=== PATIENT | male | born 1965 | race Caucasian/White ===

== ENCOUNTER 2018-08-18 13:52 | Inpatient (IN) ==
--- NOTE | 2018-08-18 14:10 | Emergency Department Note ---
Addendum entered and electronically signed by Maraina Nieto 08/18/18 18:37: ROS was not acquired due to pt's altered mental status. Physical Exam: Head: Left pupil is 2mm larger than right. Left pupil not reactive to light, right pupil reacts normally. Mucous membranes moist. Atraumatic, normocephalic. Cardio: RRR no m/r/g Resp: CTAB A/P no wheezes, rales, or ronchi Abd: Non-tender, non-distended Extremities: non-swollen, cap refill <2s, contractures present in mariam UE Mental: Not alert or oriented. Only knows name, keeps repeating name over and over again when asked questions. Original Note: Disposition Clinical Impression: Altered mental status Qualifiers: Altered mental status type: unspecified Qualified Code(s): R41.82 - Altered mental status, unspecified Disposition: Admitted As Inpatient Condition: Fair Referrals: Escobar Edmondson MD [Primary Care Provider] - Forms: ED Satisfaction Letter Time of Disposition: 18:27 General Adult HPI - General Stated complaint: sick? Time Seen by Provider: 08/18/18 13:58 Source: EMS Mode of arrival: EMS Limitations: altered mental status Nursing Notes Reviewed: Yes Vital Signs Reviewed: Yes - History of Present Illness HPI Narrative: Pt presents via EMS who state that the patient was at dialysis and about an hour into dialysis he started vomiting. This is what EMS was told from dialysis clinic. Pt was mostly unresponsive for EMS, had stable vitals, did not vomit, and did not require any oxygen. In the room, pt will open eyes to voice, cannot follow commands, and repeats "Thee" when asked questions. Pt has only received lab work at this facility, there is no other medical history in this system. Pt was picked up at [facility] [address] [place] [address], but there is no answer when calling this facility. - Related Data Home Medications Medication Instructions Recorded Confirmed Aspirin [Lo-Dose Aspirin EC] 81 mg PO DAILY 08/18/18 08/18/18 Atorvastatin Calcium [Lipitor] 80 mg PO HS 08/18/18 08/18/18 B Complex W-C No.20/Folic Acid 1 mg PO DAILY 08/18/18 08/18/18 [Virt-Caps Softgel] Baclofen [Lioresal] 5 mg PO BID PRN 08/18/18 08/18/18 Bisacodyl [Dulcolax] 10 mg RC DAILY PRN 08/18/18 08/18/18 Cholecalciferol (Vitamin D3) 50,000 unit PO QMONTH 08/18/18 08/18/18 [Vitamin D] Cyclopentolate HCl [Cyclogyl] 1 drop BOTH EYES BID 08/18/18 08/18/18 Divalproex Sodium [Depakote] 125 mg PO 0800 08/18/18 08/18/18 Erythromycin OPTH Oint 1 appl RIGHT EYE HS 08/18/18 08/18/18 Esomeprazole Magnesium [Nexium] 40 mg PO QAM 08/18/18 08/18/18 Furosemide [Lasix] 80 mg PO BID 08/18/18 08/18/18 Gabapentin [Neurontin] 100 mg PO TUTHSA 08/18/18 08/18/18 Gabapentin [Neurontin] 300 mg PO 0800 08/18/18 08/18/18 Gabapentin [Neurontin] 300 mg PO SUMOWEFR 08/18/18 08/18/18 HYDROcodone/Acet 5/325 mg [[place] 1 tab PO Q4H PRN 08/18/18 08/18/18 5-325 mg] Insulin Glargine [Lantus] 27 unit SQ HS 08/18/18 08/18/18 Insulin Regular, Human [Novolin R] 0 unit SQ 0800,1100,1600,2000 08/18/18 08/18/18 Isosorbide MONOnitrate (24 HR) 30 mg PO DAILY 08/18/18 08/18/18 [Imdur] Meclizine HCl [Verticalm] 25 mg PO Q12H PRN 08/18/18 08/18/18 Metoprolol [Lopressor] 25 mg PO BID 08/18/18 08/18/18 Nitroglycerin [Nitrostat] 0.4 mg SL Q5M PRN 08/18/18 08/18/18 Ondansetron HCl [Zofran] 4 mg PO Q6H PRN 08/18/18 08/18/18 Prednisolone Acetate/Pf 1 drop BOTH EYES BID 08/18/18 08/18/18 [Prednisolone Acet 1% Eye Drop] Tamsulosin HCl [Flomax] 0.4 mg PO DAILY 08/18/18 08/18/18 Tramadol HCl [Ultram] 50 mg PO BID PRN 08/18/18 08/18/18 Venlafaxine HCl [Venlafaxine HCl 75 mg PO DAILY 08/18/18 08/18/18 ER] amLODIPine [Norvasc] 5 mg PO BID 08/18/18 08/18/18 hydrALAZINE [HydrALAZINE] 25 mg PO Q8HR 08/18/18 08/18/18 Allergies Allergy/AdvReac Type Severity Reaction Status Date / Time vancomycin Allergy Rash Verified 08/18/18 16:15 Course Course Narrative: Pt's sister arrived at bedside and states that patient has had a declining mental status for the last 3 days, sister also noted that patient was complaining of a severe headache last night at 7:30 PM. She also relates that patient has a history of CHF, 2 CVAs, diabetes, diabetic retinopathy, and was admitted to the hospital last month for pneumonia. Patient apparently only has use of his right arm, has had detached retinas, and is normally able to converse easily at baseline. Patient will need to be admitted for workup of altered mental status. Vital Signs Temperature 98.4 F 08/18/18 14:11 Pulse Rate 60 08/18/18 14:11 Respiratory Rate 16 08/18/18 14:11 Blood Pressure 166/78 08/18/18 14:11 O2 Sat by Pulse Oximetry 93 08/18/18 14:11 Temperature 98.4 F 08/18/18 14:11 Pulse Rate 60 08/18/18 14:11 Respiratory Rate 16 08/18/18 14:11 Blood Pressure 166/78 08/18/18 14:11 O2 Sat by Pulse Oximetry 100 08/18/18 14:24 Oxygen Delivery Oxygen Delivery Room Air Medical Decision Making - MDM Narrative Medical decision making narrative: Patient had an extensive workup in the emergency department including head CT, chest x-ray, EKG, lab work to include CBC, CMP, ammonia level, Depakote level, as well as several other labs which failed to show any significant abnormalities. Patient's sister came in during his treatment in the emergency department and stated that he has had a worsening mental status over the last 3 days, and at his baseline as he is normally able to communicate. Paperwork sent from [facility] states the patient is normally a and O 3, patient is still unable to verbalize if anything is wrong. Patient will be admitted for workup of altered mental status. Dr. Arce, hospitalist, accepts. Patient's vital signs remained stable while in the department. - Medical Records Medical records reviewed: Yes I reviewed the patient's medical records. - Lab Data Lab results reviewed: Yes I reviewed the patient's lab results. Result diagrams: 08/18/18 14:19 08/18/18 14:19 Lab Results 08/18/18 08/18/18 08/18/18 Range/Units 14:19 14:19 14:19 WBC 5.1 (4.3-11.1) K/mcL RBC 2.29 L (4.19-5.50) M/mcL Hgb 7.3 L (12.9-16.9) g/dL Hct 22.3 L (37.5-50.1) % MCV 97.4 (83.0-100.0) fL MCH 31.9 (28.0-33.3) pg MCHC 32.7 (31.6-35.5) g/dL RDW 13.2 (11.5-14.5) % Plt Count 156 (140-400) K/mcL MPV 8.9 L (9.4-12.4) fL Immature Gran % 0.2 (0-4) % Seg Neutrophils % 75.7 % Lymphocytes % 8.9 % Monocytes % 10.3 % Eosinophils % 4.3 % Basophils % 0.6 % Neutrophils # 3.8 (1.6-8.9) K/mcL Lymphocytes # 0.5 L (0.6-4.6) K/mcL Monocytes # 0.5 (0.0-1.3) K/mcL Eosinophils # 0.2 (0.0-0.6) K/mcL Basophils # 0.0 (0.0-0.2) K/mcL PT 12.3 H (9.4-12.1) Seconds INR 1.1 APTT 36.0 (26.0-36.0) Seconds Sodium 141 (136-145) mEq/L Potassium 4.0 (3.5-5.1) mEq/L Chloride 102 (98-107) mEq/L Carbon Dioxide 28 (23-29) mEq/L BUN 56 H (6-20) mg/dL Creatinine 5.64 H (0.70-1.30) mg/dL Est GFR ( Amer) 13 L (> 60) Est GFR (Non-Af Amer) 11 L (> 60) BUN/Creatinine Ratio 10 (6-26) Glucose 100 (70-105) mg/dL Calculated Osmolality 308 H (280-300) Lactic Acid (0.5-2.2) mmol/L Calcium 8.1 L (8.6-10.3) mg/dL Total Bilirubin 0.4 (0.3-1.0) mg/dL Direct Bilirubin 0.1 (0.0-0.2) mg/dL Indirect Bilirubin 0.3 (0.0-1.2) mg/dL AST 11 L (13-39) Units/L ALT 14 (7-52) Units/L Alkaline Phosphatase 71 (34-104) Units/L Ammonia (16-53) mcmol/L Troponin I < 0.03 (< 0.04) ng/mL Serum Total Protein 6.3 L (6.4-8.9) g/dL Albumin 3.6 (3.5-5.7) g/dL Globulin 2.7 (2.4-3.5) g/dL Albumin/Globulin Ratio 1.3 (1.1-2.2) Lipase 29 (11-82) Units/L Valproic Acid 10 L (50-100) mcg/mL 18 08/18/18 Range/Units 17:12 17:12 WBC (4.3-11.1) K/mcL RBC (4.19-5.50) M/mcL Hgb (12.9-16.9) g/dL Hct (37.5-50.1) % MCV (83.0-100.0) fL MCH (28.0-33.3) pg MCHC (31.6-35.5) g/dL RDW (11.5-14.5) % Plt Count (140-400) K/mcL MPV (9.4-12.4) fL Immature Gran % (0-4) % Seg Neutrophils % % Lymphocytes % % Monocytes % % Eosinophils % % Basophils % % Neutrophils # (1.6-8.9) K/mcL Lymphocytes # (0.6-4.6) K/mcL Monocytes # (0.0-1.3) K/mcL Eosinophils # (0.0-0.6) K/mcL Basophils # (0.0-0.2) K/mcL PT (9.4-12.1) Seconds INR APTT (26.0-36.0) Seconds Sodium (136-145) mEq/L Potassium (3.5-5.1) mEq/L Chloride (98-107) mEq/L Carbon Dioxide (23-29) mEq/L BUN (6-20) mg/dL Creatinine (0.70-1.30) mg/dL Est GFR ( Amer) (> 60) Est GFR (Non-Af Amer) (> 60) BUN/Creatinine Ratio (6-26) Glucose (70-105) mg/dL Calculated Osmolality (280-300) Lactic Acid 0.6 (0.5-2.2) mmol/L Calcium (8.6-10.3) mg/dL Total Bilirubin (0.3-1.0) mg/dL Direct Bilirubin (0.0-0.2) mg/dL Indirect Bilirubin (0.0-1.2) mg/dL AST (13-39) Units/L ALT (7-52) Units/L Alkaline Phosphatase (34-104) Units/L Ammonia 29 (16-53) mcmol/L Troponin I (< 0.04) ng/mL Serum Total Protein (6.4-8.9) g/dL Albumin (3.5-5.7) g/dL Globulin (2.4-3.5) g/dL Albumin/Globulin Ratio (1.1-2.2) Lipase (11-82) Units/L Valproic Acid (50-100) mcg/mL - Radiology Data Radiology results reviewed: Yes I reviewed the patient's radiology results. Head CT 08/18/18 14:03 IMPRESSION: No acute intracranial abnormality with chronic findings as described. D/ / Ari Varner MD / Ari Varner MD Interpreting Provider: Ari Varner MD Chest X-Ray 08/18/18 15:58 IMPRESSION: Cardiomegaly. Findings of mild congestive heart failure versus physiologic redistribution and atelectatic appearance. D/ / Carlos Galan / Carlos Galan Interpreting Provider: Carlos Galan - EKG Data EKG #1 EKG attestation: Yes I reviewed and interpreted this EKG. EKG results narrative: HR 61, rhythm sinus, axis left -2. OR 166, QRS 113, QT 463. Isolated t wave depression in V4-V5 1mm
[2018-08-18] MEDS ORDERED: Ondansetron 4 MG/2 ML VIAL IVP ONE (14:12)
[2018-08-18 14:31] LABS: Basophils % 0.6 %; Eosinophils # 0.2 K/mcL (0.0-0.6); Eosinophils % 4.3 %; Hematocrit 22.3 % (37.5-50.1); Hemoglobin 7.3 g/dL (12.9-16.9); Immature Granulocytes % 0.2 % (0-4); Lymphocytes # 0.5 K/mcL (0.6-4.6); Lymphocytes % 8.9 %; Mean Corpuscular HGB Conc 32.7 g/dL (31.6-35.5); Mean Corpuscular Hemoglobin 31.9 pg (28.0-33.3); Mean Corpuscular Volume 97.4 fL (83.0-100.0); Mean Platelet Volume 8.9 fL (9.4-12.4); Monocytes # 0.5 K/mcL (0.0-1.3); Monocytes % 10.3 %; Neutrophils # 3.8 K/mcL (1.6-8.9); Platelet Count 156 K/mcL (140-400); Red Blood Count 2.29 M/mcL (4.19-5.50); Red Cell Distribution Width 13.2 % (11.5-14.5); Segmented Neutrophils % 75.7 %
[2018-08-18 14:50] LABS: Alanine Aminotransferase 14 Units/L (7-52); Albumin 3.6 g/dL (3.5-5.7); Alkaline Phosphatase 71 Units/L (34-104); Aspartate Amino Transferase 11 Units/L (13-39); BUN/Creatinine Ratio 10 (6-26); Bilirubin,Total 0.4 mg/dL (0.3-1.0); Blood Urea Nitrogen 56 mg/dL (6-20); Calcium 8.1 mg/dL (8.6-10.3); Carbon Dioxide 28 mEq/L (23-29); Chloride 102 mEq/L (98-107); Glucose 100 mg/dL (70-105); Osmolality,Calculated 308 (280-300); Sodium 141 mEq/L (136-145); Total Protein 6.3 g/dL (6.4-8.9); eGFR For Non-African Americans 11 (> 60)
[2018-08-18 14:51] LABS: Albumin/Globulin Ratio 1.3 (1.1-2.2); Globulin 2.7 g/dL (2.4-3.5); Lipase 29 Units/L (11-82)
--- NOTE | 2018-08-18 16:11 | Emergency Department Note ---
Disposition Clinical Impression: Altered mental status Disposition: Admitted As Inpatient Condition: Fair General Adult HPI - General Chief complaint: ED Nausea/Vomiting/Diarrhea Stated complaint: sick? Time Seen by Provider: 08/18/18 13:58 Source: EMS Mode of arrival: EMS Limitations: altered mental status - History of Present Illness Pain Scale: 0 - Related Data Home Medications Medication Instructions Recorded Confirmed Aspirin [Lo-Dose Aspirin EC] 81 mg PO DAILY 08/18/18 08/18/18 Atorvastatin Calcium [Lipitor] 80 mg PO HS 08/18/18 08/18/18 B Complex W-C No.20/Folic Acid 1 mg PO DAILY 08/18/18 08/18/18 [Virt-Caps Softgel] Baclofen [Lioresal] 5 mg PO BID PRN 08/18/18 08/18/18 Bisacodyl [Dulcolax] 10 mg RC DAILY PRN 08/18/18 08/18/18 Cholecalciferol (Vitamin D3) 50,000 unit PO QMONTH 08/18/18 08/18/18 [Vitamin D] Cyclopentolate HCl [Cyclogyl] 1 drop BOTH EYES BID 08/18/18 08/18/18 Divalproex Sodium [Depakote] 125 mg PO 0800 08/18/18 08/18/18 Erythromycin OPTH Oint 1 appl RIGHT EYE HS 08/18/18 08/18/18 Esomeprazole Magnesium [Nexium] 40 mg PO QAM 08/18/18 08/18/18 Furosemide [Lasix] 80 mg PO BID 08/18/18 08/18/18 Gabapentin [Neurontin] 100 mg PO TUTHSA 08/18/18 08/18/18 Gabapentin [Neurontin] 300 mg PO 0800 08/18/18 08/18/18 Gabapentin [Neurontin] 300 mg PO SUMOWEFR 08/18/18 08/18/18 HYDROcodone/Acet 5/325 mg [[place] 1 tab PO Q4H PRN 08/18/18 08/18/18 5-325 mg] Insulin Glargine [Lantus] 27 unit SQ HS 08/18/18 08/18/18 Insulin Regular, Human [Novolin R] 0 unit SQ 0800,1100,1600,2000 08/18/18 08/18/18 Isosorbide MONOnitrate (24 HR) 30 mg PO DAILY 08/18/18 08/18/18 [Imdur] Meclizine HCl [Verticalm] 25 mg PO Q12H PRN 08/18/18 08/18/18 Metoprolol [Lopressor] 25 mg PO BID 08/18/18 08/18/18 Nitroglycerin [Nitrostat] 0.4 mg SL Q5M PRN 08/18/18 08/18/18 Ondansetron HCl [Zofran] 4 mg PO Q6H PRN 08/18/18 08/18/18 Prednisolone Acetate/Pf 1 drop BOTH EYES BID 08/18/18 08/18/18 [Prednisolone Acet 1% Eye Drop] Tamsulosin HCl [Flomax] 0.4 mg PO DAILY 08/18/18 08/18/18 Tramadol HCl [Ultram] 50 mg PO BID PRN 08/18/18 08/18/18 Venlafaxine HCl [Venlafaxine HCl 75 mg PO DAILY 08/18/18 08/18/18 ER] amLODIPine [Norvasc] 5 mg PO BID 08/18/18 08/18/18 hydrALAZINE [HydrALAZINE] 25 mg PO Q8HR 08/18/18 08/18/18 Allergies Allergy/AdvReac Type Severity Reaction Status Date / Time vancomycin Allergy Rash Verified 08/18/18 16:15 Past Medical History - Past Medical History Medical history: Reports: dialysis, renal disease Psychiatric history: Reports: no psych history - Social History Smoking Status: Unknown if ever smoked Smokeless Tobacco Status: No Alcohol use: Reports: unknown Drug use: Reports: unknown Physical Exam - General Limitations: altered mental status General appearance: alert, in distress, obese Course Vital Signs Temperature 98.4 F 08/18/18 14:11 Pulse Rate 60 08/18/18 14:11 Respiratory Rate 16 08/18/18 14:11 Blood Pressure 166/78 08/18/18 14:11 O2 Sat by Pulse Oximetry 93 08/18/18 14:11 Temperature 98.4 F 08/18/18 14:11 Pulse Rate 60 08/18/18 14:11 Respiratory Rate 16 08/18/18 14:11 Blood Pressure 166/78 08/18/18 14:11 O2 Sat by Pulse Oximetry 100 08/18/18 14:24 Oxygen Delivery Oxygen Delivery Room Air Medical Decision Making - Lab Data Result diagrams: 08/18/18 14:19 08/18/18 14:19 Lab Results 08/18/18 08/18/18 08/18/18 Range/Units 14:19 14:19 14:19 WBC 5.1 (4.3-11.1) K/mcL RBC 2.29 L (4.19-5.50) M/mcL Hgb 7.3 L (12.9-16.9) g/dL Hct 22.3 L (37.5-50.1) % MCV 97.4 (83.0-100.0) fL MCH 31.9 (28.0-33.3) pg MCHC 32.7 (31.6-35.5) g/dL RDW 13.2 (11.5-14.5) % Plt Count 156 (140-400) K/mcL MPV 8.9 L (9.4-12.4) fL Immature Gran % 0.2 (0-4) % Seg Neutrophils % 75.7 % Lymphocytes % 8.9 % Monocytes % 10.3 % Eosinophils % 4.3 % Basophils % 0.6 % Neutrophils # 3.8 (1.6-8.9) K/mcL Lymphocytes # 0.5 L (0.6-4.6) K/mcL Monocytes # 0.5 (0.0-1.3) K/mcL Eosinophils # 0.2 (0.0-0.6) K/mcL Basophils # 0.0 (0.0-0.2) K/mcL PT 12.3 H (9.4-12.1) Seconds INR 1.1 APTT 36.0 (26.0-36.0) Seconds Sodium 141 (136-145) mEq/L Potassium 4.0 (3.5-5.1) mEq/L Chloride 102 (98-107) mEq/L Carbon Dioxide 28 (23-29) mEq/L BUN 56 H (6-20) mg/dL Creatinine 5.64 H (0.70-1.30) mg/dL Est GFR ( Amer) 13 L (> 60) Est GFR (Non-Af Amer) 11 L (> 60) BUN/Creatinine Ratio 10 (6-26) Glucose 100 (70-105) mg/dL Calculated Osmolality 308 H (280-300) Lactic Acid (0.5-2.2) mmol/L Calcium 8.1 L (8.6-10.3) mg/dL Total Bilirubin 0.4 (0.3-1.0) mg/dL Direct Bilirubin 0.1 (0.0-0.2) mg/dL Indirect Bilirubin 0.3 (0.0-1.2) mg/dL AST 11 L (13-39) Units/L ALT 14 (7-52) Units/L Alkaline Phosphatase 71 (34-104) Units/L Ammonia (16-53) mcmol/L Troponin I < 0.03 (< 0.04) ng/mL Serum Total Protein 6.3 L (6.4-8.9) g/dL Albumin 3.6 (3.5-5.7) g/dL Globulin 2.7 (2.4-3.5) g/dL Albumin/Globulin Ratio 1.3 (1.1-2.2) Lipase 29 (11-82) Units/L Valproic Acid 10 L (50-100) mcg/mL 08/18/18 08/18/18 Range/Units 17:12 17:12 WBC (4.3-11.1) K/mcL RBC (4.19-5.50) M/mcL Hgb (12.9-16.9) g/dL Hct (37.5-50.1) % MCV (83.0-100.0) fL MCH (28.0-33.3) pg MCHC (31.6-35.5) g/dL RDW (11.5-14.5) % Plt Count (140-400) K/mcL MPV (9.4-12.4) fL Immature Gran % (0-4) % Seg Neutrophils % % Lymphocytes % % Monocytes % % Eosinophils % % Basophils % % Neutrophils # (1.6-8.9) K/mcL Lymphocytes # (0.6-4.6) K/mcL Monocytes # (0.0-1.3) K/mcL Eosinophils # (0.0-0.6) K/mcL Basophils # (0.0-0.2) K/mcL PT (9.4-12.1) Seconds INR APTT (26.0-36.0) Seconds Sodium (136-145) mEq/L Potassium (3.5-5.1) mEq/L Chloride (98-107) mEq/L Carbon Dioxide (23-29) mEq/L BUN (6-20) mg/dL Creatinine (0.70-1.30) mg/dL Est GFR ( Amer) (> 60) Est GFR (Non-Af Amer) (> 60) BUN/Creatinine Ratio (6-26) Glucose (70-105) mg/dL Calculated Osmolality (280-300) Lactic Acid 0.6 (0.5-2.2) mmol/L Calcium (8.6-10.3) mg/dL Total Bilirubin (0.3-1.0) mg/dL Direct Bilirubin (0.0-0.2) mg/dL Indirect Bilirubin (0.0-1.2) mg/dL AST (13-39) Units/L ALT (7-52) Units/L Alkaline Phosphatase (34-104) Units/L Ammonia 29 (16-53) mcmol/L Troponin I (< 0.04) ng/mL Serum Total Protein (6.4-8.9) g/dL Albumin (3.5-5.7) g/dL Globulin (2.4-3.5) g/dL Albumin/Globulin Ratio (1.1-2.2) Lipase (11-82) Units/L Valproic Acid (50-100) mcg/mL Attestation Statement - Attestation Attestation: I examined this patient and my medical decision-making was reviewed with the Resident Physician. I agree with the documented findings, disposition and treatment plan as described except to the extent set forth below. Patient presents to the emergency Department with altered mental status and vomiting. Patient had several episodes of vomiting while at dialysis today. Patient was then confused which is new for him. Patient with eyes open. Follows basic commands. Answers every question "yes" for me. Abdomen was soft. Lungs were clear. Legs contracted. Pupils unequal. The patient appears to have had a prior surgery on the left eye. Plan. The patient is blind. He has had a prior stroke with left-sided hemiparesis. He is on dialysis. Labs pending. Unclear the cause of his altered mental status at this time. The patient's workup is complete. Still unclear the cause of his altered mental status. Sister is now at bedside and states is been this way for 3 days. He is admitted to medicine. Head CT 08/18/18 14:03 IMPRESSION: No acute intracranial abnormality with chronic findings as described. D/ / Ari Varner MD / Ari Varner MD Interpreting Provider: Ari Varner MD Chest X-Ray 08/18/18 15:58 IMPRESSION: Cardiomegaly. Findings of mild congestive heart failure versus physiologic redistribution and atelectatic appearance. D/ / Carlos Galan / Carlos Galan Interpreting Provider: Carlos Galan
[2018-08-18 17:01] LABS: INR 1.1; Prothrombin Time 12.3 Seconds (9.4-12.1)
[2018-08-18 17:04] LABS: Bilirubin,Direct 0.1 mg/dL (0.0-0.2); Bilirubin,Indirect 0.3 mg/dL (0.0-1.2); Troponin I < 0.03 ng/mL (< 0.04); Valproate 10 mcg/mL (50-100)
[2018-08-18] MEDS ORDERED: Naloxone 0.4 MG/ML INJ IVP PRN (18:33)
[2018-08-18] MEDS ORDERED: D5% in Water 1,000 ML IVC PRN (22:11)
[2018-08-18] MEDS ORDERED: Dextrose Gel 15 GM/37.5 ML TUBE PO PRN ×2 (22:11)
[2018-08-18] MEDS ORDERED: *HR* Dextrose 50 % in Water (Syg) 50 ML SYRINGE IVP PRN (22:11)
[2018-08-18 22:27] LABS: Hematocrit 22.6 % (37.5-50.1); Hemoglobin 7.4 g/dL (12.9-16.9); Mean Corpuscular HGB Conc 32.7 g/dL (31.6-35.5); Mean Corpuscular Hemoglobin 32.3 pg (28.0-33.3); Mean Corpuscular Volume 98.7 fL (83.0-100.0); Mean Platelet Volume 9.5 fL (9.4-12.4); Platelet Count 173 K/mcL (140-400); Red Blood Count 2.29 M/mcL (4.19-5.50); Red Cell Distribution Width 13.2 % (11.5-14.5)
--- NOTE | 2018-08-18 22:45 | Internal Med History&Physical ---
Date of Encounter: 08/18/18 Time of Encounter: 21:30 Internal Medicine - H&P: HPI Chief complaint: Acute encephalopathy Admitted From: Emergency Dept Plans for Post Hospital Care: Home History of present illness: Mr. Patterson is a 53 year old male Patient presented to the ER after vomiting and having decreased responsiveness at dialysis the morning of admission. Patient is a poor historian and is unable to answer questions, only responding "yes" to all questions. Patient recently moved to this area about 2 weeks ago to be closer to his sister. He has lived in a long term for 2 years, ever since a stroke caused him lasting residual left sided weakness. He has a history of ESRD, diabetes, diabetic retinopathy, and blindness. I spoke with the patient's sister (DPOA) over the phone to help clarify the history. She indicated that he has lived at a different long term but moved here so that she could be closer to him. He has been "declining the last 3 days." She states that she had spoken with the patient the evening before admission and he was at baseline, able to converse normally. He had stated at th at time that he had a bad headache and abdominal pain, and he wanted to go to bed. The following morning he was at dialysis, had gone about 1 hour, when he vomited, and was less responsive. EMS was called and he was transported to the ER for further management. In the ER patient's CBC was 7.3, BUN was 56 and creatinine was 5.64. Head CT showed no acute changes, but did have chronic changes. Chest x-ray showed CHF vs. physiologic redistribution. EKG was normal sinus rhythm. He was admitted to the floor for further management. Upon my assessment, I was initially concerned because the patient has had an acute change in mental status, that has not improved, and still no known cause. After speaking with the patient's sister I decided to pursue further stroke workup. I could not get a good history from the patient, and ROS was not able to be completed. I ordered stat MRI/MRA of brain, as well as abdominal CT. I also ordered stat CBC and type and screen. Patient's DPOA agreed with plan. Past Med Surg Social Fam HX - Past Medical History Medical history: CHF, COPD, coronary artery disease, CVA, diabetes, dialysis, GERD, hypertension, myocardial infarction, renal disease Additional medical history: BPH, dysphagia Psychiatric history: depression - Past Surgical History Additional surgical history: left fifth toe amputation - Social History Smoking Status: Unknown if ever smoked Smokeless Tobacco Status: No Alcohol use: unknown Drug use: unknown Internal Medicine - H&P: Meds Aspirin [Lo-Dose Aspirin EC] 81 mg PO DAILY 08/18/18 [History] Atorvastatin Calcium [Lipitor] 80 mg PO HS 08/18/18 [History] B Complex W-C No.20/Folic Acid [Virt-Caps Softgel] 1 mg PO DAILY 08/18/18 [History] Baclofen [Lioresal] 5 mg PO BID PRN 08/18/18 [History] Bisacodyl [Dulcolax] 10 mg RC DAILY PRN 08/18/18 [History] Cholecalciferol (Vitamin D3) [Vitamin D] 50,000 unit PO QMONTH 08/18/18 [Hi story] Cyclopentolate HCl [Cyclogyl] 1 drop BOTH EYES BID 08/18/18 [History] Divalproex Sodium [Depakote] 125 mg PO 0800 08/18/18 [History] Erythromycin OPTH Oint 1 appl RIGHT EYE HS 08/18/18 [History] Esomeprazole Magnesium [Nexium] 40 mg PO QAM 08/18/18 [History] Furosemide [Lasix] 80 mg PO BID 08/18/18 [History] Gabapentin [Neurontin] 100 mg PO TUTHSA 08/18/18 [History] Gabapentin [Neurontin] 300 mg PO 0800 08/18/18 [History] Gabapentin [Neurontin] 300 mg PO SUMOWEFR 08/18/18 [History] HYDROcodone/Acet 5/325 mg [[place] 5-325 mg] 1 tab PO Q4H PRN 08/18/18 [History] Insulin Glargine [Lantus] 27 unit SQ HS 08/18/18 [History] Insulin Regular, Human [Novolin R] 0 unit SQ 0800,1100,1600,2000 08/18/18 [History] Isosorbide MONOnitrate (24 HR) [Imdur] 30 mg PO DAILY 08/18/18 [History] Meclizine HCl [Verticalm] 25 mg PO Q12H PRN 08/18/18 [History] Metoprolol [Lopressor] 25 mg PO BID 08/18/18 [History] Nitroglycerin [Nitrostat] 0.4 mg SL Q5M PRN 08/18/18 [History] Ondansetron HCl [Zofran] 4 mg PO Q6H PRN 08/18/18 [History] Prednisolone Acetate/Pf [Prednisolone Acet 1% Eye Drop] 1 drop BOTH EYES BID 08/18/18 [History] Tamsulosin HCl [Flomax] 0.4 mg PO DAILY 08/18/18 [History] Tramadol HCl [Ultram] 50 mg PO BID PRN 08/18/18 [History] Venlafaxine HCl [Venlafaxine HCl ER] 75 mg PO DAILY 08/18/18 [History] amLODIPine [Norvasc] 5 mg PO BID 08/18/18 [History] hydrALAZINE [HydrALAZINE] 25 mg PO Q8HR 08/18/18 [History] Allergy/AdvReac Type Severity Reaction Status Date / Time vancomycin Allergy Rash Verified 08/18/18 16:15 ROS unobtainable: due to mental status All Systems PM: A 10-system review of systems was performed and is negative for pertinent findings except as documented above in the HPI. - Constitutional Vitals: Temp Pulse Resp BP Pulse Ox 98.0 F 68 18 190/90 93 08/18/18 19:15 08/18/18 19:15 08/18/18 19:15 08/18/18 19:15 08/18/18 20:37 General appearance: Present: A&O X 0. Absent: cooperative, answers questions appropriately Exam: As above. - Eye Pupils: Present: fixed Additional comments: Blind - Respiratory Respiratory exam: Present: CTAB. Absent: rales, respiratory distress, wheezes - Cardiovascular Cardiovascular exam: Present: RRR. Absent: diastolic murmur, systolic murmur - GI/Abdominal GI/Abdominal exam: Present: tenderness Additional comments: Unclear if tender abdomen, patient does not respond to palpation with signs of pain - Extremities Exam Additional comments: contracted hands, cant move left side at baseline. - Neurological Exam Neurological exam: Present: altered Additional comments: only answers yes to questions, even with non- yes or no questions. Patient did say, "Lucille Junior when I introduced myself however." - Skin Skin exam: Present: dry, normal color, warm Internal Med - H&P Results - Labs CBC & Chem 7: 08/18/18 22:12 08/19/18 06:34 Labs: Short CBC 08/18/18 08/18/18 Range/Units 14:19 22:12 WBC 5.1 5.3 (4.3-11.1) K/mcL Hgb 7.3 L 7.4 L (12.9-16.9) g/dL Hct 22.3 L 22.6 L (37.5-50.1) % Plt Count 156 173 (140-400) K/mcL Neutrophils # 3.8 (1.6-8.9) K/mcL BMP 08/18/18 14:19 Sodium 141 Potassium 4.0 Chloride 102 Carbon Dioxide 28 BUN 56 H Creatinine 5.64 H Glucose 100 Calcium 8.1 L Cardiac Enzymes 08/18/18 Range/Units 14:19 Troponin I < 0.03 (< 0.04) ng/mL Liver Function 08/18/18 Range/Units 14:19 Total Bilirubin 0.4 (0.3-1.0) mg/dL Direct Bilirubin 0.1 (0.0-0.2) mg/dL AST 11 L (13-39) Units/L ALT 14 (7-52) Units/L Alkaline Phosphatase 71 (34-104) Units/L Albumin 3.6 (3.5-5.7) g/dL - Impressions ITS Impressions Head CT 08/18/18 14:03 IMPRESSION: No acute intracranial abnormality with chronic findings as described. D/ / Ari Varner MD / Ari Varner MD Interpreting Provider: Ari Varner MD Chest X-Ray 08/18/18 15:58 IMPRESSION: Cardiomegaly. Findings of mild congestive heart failure versus physiologic redistribution and atelectatic appearance. D/ / Carlos Galan / Carlos Galan Interpreting Provider: Carlos Galan - Assessment and plan (1) Acute encephalopathy Current Visit: Yes Status: Acute Assessment and plan: Concerned for stroke, but patient has ESRD. Stat MRI/MRA brain head and neck ordered. Results positive for small acute infarction involving the right temporal lobe periventricular white matter. There was severe chronic microangiopathic ischemic changes of cerebral white matter as well as absent flow related signal within the distal right vertebral artery. 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 Super imposed acquired occlusion or severe stenosis were also considered. After obtaining these results, I again spoke with the patient's DPOA. She stated that if necessary she would be ok with transfer to [facility] for further management. I then called [facility] and spoke with Dr. Brian of neurology. She stated that as it is a small infarction, we could pursue medical management, and transfer may not be necessary. She recommended further work up with Echo and carotid dopplers. Patient had already been on aspirin and atorvastatin. She also recommended neurology and therapy consultation. Patient's DPOA agreed with this plan. Echo cardiogram in AM Carotid doppler exam Neurology consult PT/OT consultation Speech and swallow evaluation (2) Acute cerebral infarction Current Visit: Yes Status: Acute Assessment and plan: As above (3) Anemia Current Visit: Yes Status: Acute Assessment and plan: Unclear what patient's baseline is. Stat CBC was unchanged from previous. Likely related to ESRD, but no history about this provided. Type and screen Occult blood with next bowel movement. Transfuse if less than 7.0 Qualifiers: Anemia type: due to chronic kidney disease Chronic kidney disease stage: on chronic dialysis Qualified Code(s): N18.6 - End stage renal disease; D63.1 - Anemia in chronic kidney disease; Z99.2 - Dependence on renal dialysis (4) Abdominal pain Current Visit: Yes Status: Acute Assessment and plan: Unclear etiology. Stat CT showed possible cystitis. No bleed noted. CT was non- contrast due to kidney function. Obtain UA Start antibiotics if positive for infection. Qualifiers: Abdominal location: unspecified location Qualified Code(s): R10.9 - Unspecified abdominal pain (5) ESRD (end stage renal disease) on dialysis Current Visit: Yes Status: Acute Assessment and plan: Patient unable to complete dialysis yesterday. Scheduled for Monday and Monday. Nephrology consult in AM. (6) Diabetes Current Visit: Yes Status: Acute Assessment and plan: Low dose sliding scale Monitor sugars Q6H while NPO. 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 Will continue to monitor. Qualifiers: Hypertension type: unspecified Qualified Code(s): I10 - Essential (primary) hypertension (8) History of CVA (cerebrovascular accident) Current Visit: Yes Status: Acute Assessment and plan: Patient has had 2 previous strokes, with chronic left sided weakness from second stroke. He is a long term patient for this reason. Management of 3rd stroke as above. (9) Goals of care, counseling/discussion Current Visit: Yes Status: Acute Assessment and plan: Spoke at length with patient's sister, Marcia Jimenez (DPOA) throughout the night. She stated that he has a living will, and a DNR/DNI order. She stated that she will bring this paperwork with her today as well as a list of his most recent medications. Contact number is . - Time Spent With Patient Total time spent is greater than 50% in coordination of care (as documented) at patient's floor/unit and/or counseling patient: Greater than 35 minutes
--- NOTE | 2018-08-19 07:17 | Nephrology Consult Note ---
Addendum entered and electronically signed by Laron Patino MD 08/19/18 21:33: I examined this patient and discussed the medical decision-making with AVANI Perales. I agree with the documented findings, disposition and treatment plan as described except to the extent set forth below. Original Note: Date of Encounter: 08/19/18 Time of Encounter: 07:13 Assessment and Plan (1) ESRD (end stage renal disease) on dialysis Current Visit: Yes Status: Acute Plan for HD on Monday Will need renal diet when diet advanced Will need his binder Renvela 800mg one tab p.o. TID with meals once he is no lo nger NPO Strict I/Os Avoid nephrotoxins if possible (2) Acute encephalopathy Current Visit: Yes Status: Acute per primary team (3) History of CVA (cerebrovascular accident) Current Visit: Yes Status: Acute per primary team History of Present Illness - Reason for Consult Consult date: 08/19/18 - Chief Complaint Altered mental status, vomiting - History of Present Illness Mr Patterson is a 53 year old male well known to our practice who presented to the emergency Department with altered mental status and vomiting. Patient had several episodes of vomiting while at dialysis yesterday along with confusion which is new for him. The patient is blind and has had a prior stroke with left-sided hemiparesis. PMH includes renal disease, on dialysis, blindness, and stroke. Patient did wake up this morning during my exam but did not answer any questions. Nephrology has been consulted to manage his HD while hospitalized. Past Med Surg Social Fam HX - Past Medical History Medical history: CHF, COPD, coronary artery disease, CVA, diabetes, dialysis, GERD, hypertension, myocardial infarction, renal disease Additional medical history: BPH, dysphagia Psychiatric history: depression - Past Surgical History Additional surgical history: left fifth toe amputation - Social History Smoking Status: Unknown if ever smoked Smokeless Tobacco Status: No Alcohol use: unknown Drug use: unknown Medications and Allergies Aspirin [Lo-Dose Aspirin EC] 81 mg PO DAILY 08/18/18 [History] Atorvastatin Calcium [Lipitor] 80 mg PO HS 08/18/18 [History] B Complex W-C No.20/Folic Acid [Virt-Caps Softgel] 1 mg PO DAILY 08/18/18 [History] Baclofen [Lioresal] 5 mg PO BID PRN 08/18/18 [History] Bisacodyl [Dulcolax] 10 mg RC DAILY PRN 08/18/18 [History] Cholecalciferol (Vitamin D3) [Vitamin D] 50,000 unit PO QMONTH 08/18/18 [History] Cyclopentolate HCl [Cyclogyl] 1 drop BOTH EYES BID 08/18/18 [History] Divalproex Sodium [Depakote] 125 mg PO 0800 08/18/18 [History] Erythromycin OPTH Oint 1 appl RIGHT EYE HS 08/18/18 [History] Esomeprazole Magnesium [Nexium] 40 mg PO QAM 08/18/18 [History] Furosemide [Lasix] 80 mg PO BID 08/18/18 [History] Gabapentin [Neurontin] 100 mg PO TUTHSA 08/18/18 [History] Gabapentin [Neurontin] 300 mg PO 0800 08/18/18 [History] Gabapentin [Neurontin] 300 mg PO SUMOWEFR 08/18/18 [History] HYDROcodone/Acet 5/325 mg [[place] 5-325 mg] 1 tab PO Q4H PRN 08/18/18 [History] Insulin Glargine [Lantus] 27 unit SQ HS 08/18/18 [History] Insulin Regular, Human [Novolin R] 0 unit SQ 0800,1100,1600,2000 08/18/18 [History] Isosorbide MONOnitrate (24 HR) [Imdur] 30 mg PO DAILY 08/18/18 [History] Meclizine HCl [Verticalm] 25 mg PO Q12H PRN 08/18/18 [History] Metoprolol [Lopressor] 25 mg PO BID 08/18/18 [History] Nitroglycerin [Nitrostat] 0.4 mg SL Q5M PRN 08/18/18 [History] Ondansetron HCl [Zofran] 4 mg PO Q6H PRN 08/18/18 [History] Prednisolone Acetate/Pf [Prednisolone Acet 1% Eye Drop] 1 drop BOTH EYES BID 08/18/18 [History] Tamsulosin HCl [Flomax] 0.4 mg PO DAILY 08/18/18 [History] Tramadol HCl [Ultram] 50 mg PO BID PRN 08/18/18 [History] Venlafaxine HCl [Venlafaxine HCl ER] 75 mg PO DAILY 08/18/18 [History] amLODIPine [Norvasc] 5 mg PO BID 08/18/18 [History] hydrALAZINE [HydrALAZINE] 25 mg PO Q8HR 08/18/18 [History] Allergy/AdvReac Type Severity Reaction Status Date / Time vancomycin Allergy Rash Verified 08/18/18 16:15 Review of Systems All Systems: reviewed and no additional remarkable complaints except as stated Constitutional: no fever(s) Cardiovascular: no chest pain, no dyspnea Respiratory: no cough Gastrointestinal: vomiting Neurological: behavioral changes Psychiatric: behavioral changes Exam - Vital Signs Vital signs: Initial Vital Signs Temp Pulse Resp BP Pulse Ox 98.4 F 60 16 166/78 93 08/18/18 14:11 08/18/18 14:11 08/18/18 14:11 08/18/18 14:11 08/18/18 14:11 Vital Signs - Last 8 Hours Temp Pulse Resp BP Pulse Ox 08/19/18 03:58 98.3 F 80 17 187/88 96 08/18/18 23:44 97.9 F 72 18 209/92 100 Intake and Output 08/18/18 08/18/18 08/19/18 15:59 23:59 07:59 Other: # Urine Diapers 1 Weight 100.38 kg 98.5 kg Blood Glucose* 93 96 - General Appearance General appearance: obese EENT: ATNC Neck: supple Respiratory: clear Cardiology: no edema, normal S1, normal S2 Gastrointestinal: no tenderness, no guarding Integumentary: warm and dry Neurologic: confused Results - Lab Results 08/18/18 22:12 08/19/18 06:34 Most recent lab results Calcium 8.1 mg/dL (8.6-10.3) L 08/18/18 14:19 Consult Discharge Plan - Plan Referrals: Escobar Edmondson MD [Primary Care Provider] -
[2018-08-19 07:21] LABS: Calcium 8.7 mg/dL (8.6-10.3); Magnesium 1.9 mg/dL (1.6-2.6); Phosphorous 5.5 mg/dL (2.7-4.5); Potassium 4.3 mEq/L (3.5-5.1)
[2018-08-19] MEDS: Insulin LISPRO 300 UNITS/3 ML VIAL SQ SCH ×4 (07:56→21:55)
[2018-08-19] MEDS ORDERED: Bisacodyl 10 MG RECTAL SUPPOSITORY RC PRN (08:15)
[2018-08-19] MEDS ORDERED: Ondansetron ODT 4 MG TAB.RAPDIS PO PRN (08:15)
[2018-08-19] MEDS ORDERED: traMADol 50 MG TABLET PO PRN (08:15)
[2018-08-19] MEDS ORDERED: Nitroglycerin 0.4 MG TAB.SUBL SL PRN (08:15)
[2018-08-19] MEDS ORDERED: *HR* HYDROcodone/Acet 5/325 mg TABLET PO PRN (08:15)
[2018-08-19 09:19] LABS: Basophils % 0.6 %; Eosinophils # 0.1 K/mcL (0.0-0.6); Eosinophils % 2.1 %; Hematocrit 22.9 % (37.5-50.1); Hemoglobin 7.4 g/dL (12.9-16.9); Immature Granulocytes % 0.2 % (0-4); Lymphocytes # 0.5 K/mcL (0.6-4.6); Lymphocytes % 8.8 %; Mean Corpuscular HGB Conc 32.3 g/dL (31.6-35.5); Mean Corpuscular Volume 99.1 fL (83.0-100.0); Mean Platelet Volume 9.9 fL (9.4-12.4); Monocytes # 0.3 K/mcL (0.0-1.3); Monocytes % 6.4 %; Neutrophils # 4.4 K/mcL (1.6-8.9); Platelet Count 168 K/mcL (140-400); Red Blood Count 2.31 M/mcL (4.19-5.50); Red Cell Distribution Width 13.3 % (11.5-14.5); Segmented Neutrophils % 81.9 %
[2018-08-19] MEDS: Aspirin Enteric Coated 81 MG Tablet PO SCH (10:03)
[2018-08-19] MEDS: amLODIPine 5 MG TABLET PO SCH ×2 (10:03→21:52)
[2018-08-19] MEDS: Renal Vitamin 1 CAP CAPSULE PO SCH (10:03)
[2018-08-19] MEDS: Venlafaxine XR (24 HR) 75 MG CAP.ER.24H PO SCH (10:03)
[2018-08-19] MEDS: Isosorbide MONOnitrate (24 HR) 30 MG TAB.ER.24H PO SCH (10:03)
[2018-08-19] MEDS: Furosemide 40 MG TABLET PO SCH ×2 (10:05→18:54)
--- NOTE | 2018-08-19 10:15 | Internal Med Progress Note ---
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, hypertension,hyperlipidemia, GERD, severe depression Patient is a resident of [facility] Seen and evaluated at the bedside, he responded to quit morning and follows, and equivocally Bedside swallow eval done with RN patient was able to swallow was uncooperative to receive his morning meds He is admitted this time and being managed for acute ischemic CVA with associated right vertebral artery occlusion According to the history and physical, [facility] neurology had been consulted and recommended medical management The patient has chronic left hemiparesis from his prior CVAs and is legally blind - Exam Vitals: Temp Pulse Resp BP Pulse Ox 98.7 F 74 16 199/94 96 08/19/18 07:40 08/19/18 07:40 08/19/18 07:40 08/19/18 07:40 08/19/18 07:40 Exam: General: Sleeping but easily arousable HEENT: Head atraumatic, normocephalic, and equal. Feels Neck: Normal inspection Chest: equal chest movement bilaterally Respiratory: Clear to auscultation bilaterally anteriorly Cardiovascualr: Regular rate and rhythm with no murmur, absent gallops or rubs, absent pedal edema, radial pulses 2 out of 4 Abdomen: Soft, not tender Skin: warm and dry, absent rash, absent open wounds and nodules MSK: Left hand contracted, left lower extremity with diffuse atrophic Neuro: Sleepy but arousable, left facial droop, pupils and equal (due to prior eye surgery) left hemiparesis - Assessment and Plan (1) Acute cerebral infarction Current Visit: Yes Status: Acute Assessment and Plan: Seen with multiple risk factors including prior multiple CVAs with left hemiparesis, diabetes mellitus and end-stage renal disease and uncontrolled hyperlipidemia who presented with acute encephalopathy Head MRI and MRA shows small acute infarction involving the right temporal lobe periventricular white matter. There was severe chronic microangiopathic ischemic changes of cerebral white matter as well as absent flow related signal within the distal right vertebral artery. 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 According to H&P, receiving urology recommended medical management Neurology evaluation from a facility pending Echocardiogram, carotid Doppler are pending , PTOT evaluation pending, speech and swallow evaluation pending Nothing by mouth except medications For precautions and aspiration precautions Patient is DNR/DNI Continue aspirin, statin, and initial blood pressure control (2) Abdominal pain Current Visit: Yes Status: Acute Assessment and Plan: Abdomen CT shows no acute intra-abdominal abnormality except possible cystitis Urine analysis pending (3) Acute encephalopathy Current Visit: Yes Status: Acute Assessment and Plan: Likely secondary to acute CVA (4) Anemia Current Visit: Yes Status: Chronic Assessment and Plan: Anemia is chronic baseline is unknown, hemoglobin 7.4, patient with end-stage renal disease. Anemia is likely due to kidney disease. Follow type and screen, FOBT, transfuse for hemoglobin less than 7 (5) Diabetes Current Visit: Yes Status: Chronic Assessment and Plan: FS every 6hrs, sliding scale while patient is nothing by mouth (6) ESRD (end stage renal disease) on dialysis Current Visit: Yes Status: Chronic Assessment and Plan: Nephrology evaluation for hemodialysis (7) Goals of care, counseling/discussion Current Visit: Yes Status: Acute Assessment and Plan: DNR/DNI (8) History of CVA (cerebrovascular accident) Current Visit: Yes Status: Acute Assessment and Plan: Continue current meds (9) Hypertension Current Visit: Yes Status: Acute Assessment and Plan: Allow for Permissive hypertension in setting of acute CVA. Will continue to monitor. Hydralazine when necessary IV - Time Spent with Patient Total time spent is greater than 50% in coordination of care (as documented) at patient's floor/unit and/or counseling patient: Plan of Care Discussed with: nurse Internal Medicine: Result - Labs CBC & Chem 7: 08/19/18 08:50 08/19/18 06:34 Labs: Short CBC 08/18/18 08/18/18 08/19/18 Range/Units 14:19 22:12 08:50 WBC 5.1 5.3 5.4 (4.3-11.1) K/mcL Hgb 7.3 L 7.4 L 7.4 L (12.9-16.9) g/dL Hct 22.3 L 22.6 L 22.9 L (37.5-50.1) % Plt Count 156 173 168 (140-400) K/mcL Neutrophils # 3.8 4.4 (1.6-8.9) K/mcL BMP 08/18/18 08/19/18 14:19 06:34 Sodium 141 141 Potassium 4.0 4.3 Chloride 102 103 Carbon Dioxide 28 25 BUN 56 H 63 H Creatinine 5.64 H 6.43 H Glucose 100 97 Calcium 8.1 L 8.7 Cardiac Enzymes 08/18/18 Range/Units 14:19 Troponin I < 0.03 (< 0.04) ng/mL Liver Function 08/18/18 Range/Units 14:19 Total Bilirubin 0.4 (0.3-1.0) mg/dL Direct Bilirubin 0.1 (0.0-0.2) mg/dL AST 11 L (13-39) Units/L ALT 14 (7-52) Units/L Alkaline Phosphatase 71 (34-104) Units/L Albumin 3.6 (3.5-5.7) g/dL - ABG Interpretation ABG results: PT/INR, D-dimer PT 12.3 Seconds (9.4-12.1) H 08/18/18 14:19 - Impressions Impressions Head CT 08/18/18 14:03 IMPRESSION: No acute intracranial abnormality with chronic findings as described. D/ / Ari Varner MD / Ari Varner MD Interpreting Provider: Ari Varner MD Chest X-Ray 08/18/18 15:58 IMPRESSION: Cardiomegaly. Findings of mild congestive heart failure versus physiologic redistribution and atelectatic appearance. D/ / Carlos Galan / Carlos Galan Interpreting Provider: Carlos Galan Brain MRI 08/18/18 22:34 IMPRESSION: Exam quality is severely degraded by motion artifact which limits sensitivity of the examination. Small acute infarction involving the right temporal lobe periventricular white matter. Severe chronic microangiopathic ischemic changes of cerebral white matter. 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 Superimposed acquired occlusion or severe stenosis remains a consideration. When patient's condition permits, consider repeat examination or correlation with CT angiogram head neck. The findings were sent to the Radiology Results Communication Center at 1:51 am on 08/19/2018to be communicated to a licensed caregiver. D/ / Ronnie Gaviria Interpreting Provider: Ronnie Gaviria Head MRA 08/18/18 22:34 IMPRESSION: Exam quality is severely degraded by motion artifact which limits sensitivity of the examination. Small acute infarction involving the right temporal lobe periventricular white matter. Severe chronic microangiopathic ischemic changes of cerebral white matter. 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 Superimposed acquired occlusion or severe stenosis remains a consideration. When patient's condition permits, consider repeat examination or correlation with CT angiogram head neck. The findings were sent to the Radiology Results Communication Center at 1:51 am on 08/19/2018to be communicated to a licensed caregiver. D/ / Ronnie Gaviria Interpreting Provider: Ronnie Gaviria Abdomen/Pelvis CT 08/19/18 00:00 IMPRESSION: 1. Cardiomegaly and small pericardial effusion. Bilateral pleural effusions and lower lobe atelectatic changes. 2. Circumferential thickening of the urinary bladder suggests cystitis. 3. Compression injuries at L1 and L2 of unknown acuity. D/ / 08/19/2018 08:55:58 Catia Salinas MD / 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
[2018-08-19] MEDS: PrednisoLONE Acetate 1% Opth 5 ML BOTTLE BOTH EYES SCH ×2 (10:40→21:54)
[2018-08-19] MEDS: Cyclopentolate 2 ML BOTTLE BOTH EYES SCH ×2 (10:41→21:51)
[2018-08-19] MEDS ORDERED: Perflutren Lipid Microsphere 1.3 ML in 0.9 % Sodium Chloride 8.7 ML IVP ONE (13:24)
[2018-08-19] MEDS: hydrALAZINE 25 MG TABLET PO SCH ×2 (14:16→21:52)
--- NOTE | 2018-08-19 14:37 | Event Note ---
Date of Encounter: 08/19/18 Time of Encounter: 14:36 Met with patient's sister and discussed plan of care with her
[2018-08-19] MEDS ORDERED: Gabapentin 300 MG CAPSULE PO SCH (20:00)
[2018-08-19 20:57] LABS: Hepatitis B Surface Antigen Nonreactive (Nonreactive)
[2018-08-19] MEDS: Erythromycin OPTH Oint RIGHT EYE SCH (21:52)
[2018-08-20 01:03] LABS: Bilirubin,Urine Negative (Negative); Blood,Urine Moderate (Negative); Clarity,Urine Turbid (Clear); Color,Urine Yellow (Yellow); Glucose,Urine (UA) Normal (Normal); Ketones,Urine Trace mg/dL (Negative); Leukocyte Esterase,Urine Large (Negative); Nitrite,Urine Negative (Negative); Protein,Urine >=1000 mg/dL (Neg-Trace); Specific Gravity,Urine 1.018 (1.010-1.025); Urobilinogen,Urine Normal (Normal)
[2018-08-20 01:05] LABS: WBC,Urine TNTC per hpf (0-3)
[2018-08-20 01:35] LABS: Bacteria,Urine Present per hpf (None-Few); RBC,Urine Present per hpf (0-3); Squamous Epithelial Cell,Urine Present per lpf (None-Few)
[2018-08-20 01:59] LABS: Hepatitis B Surface Antibody 0.83 mIU/mL
[2018-08-20 05:41] LABS: Basophils # 0.1 K/mcL (0.0-0.2); Basophils % 1.2 %; Eosinophils # 0.1 K/mcL (0.0-0.6); Eosinophils % 2.2 %; Hematocrit 22.4 % (37.5-50.1); Hemoglobin 7.1 g/dL (12.9-16.9); Immature Granulocytes % 0.2 % (0-4); Lymphocytes # 0.6 K/mcL (0.6-4.6); Lymphocytes % 11.4 %; Mean Corpuscular HGB Conc 31.7 g/dL (31.6-35.5); Mean Corpuscular Hemoglobin 31.7 pg (28.0-33.3); Mean Platelet Volume 9.6 fL (9.4-12.4); Monocytes # 0.5 K/mcL (0.0-1.3); Monocytes % 9.8 %; Neutrophils # 3.8 K/mcL (1.6-8.9); Platelet Count 148 K/mcL (140-400); Red Blood Count 2.24 M/mcL (4.19-5.50); Red Cell Distribution Width 13.2 % (11.5-14.5); Segmented Neutrophils % 75.2 %
[2018-08-20 06:01] LABS: Calcium 8.9 mg/dL (8.6-10.3); Chol/HDL Ratio 3.4 (0-4.9); Potassium 4.4 mEq/L (3.5-5.1)
[2018-08-20] MEDS ORDERED: 0.9 % Sodium Chloride 250 ML IVC PRN (07:21)
[2018-08-20] MEDS ORDERED: 0.9 % Sodium Chloride 1,000 ML PRIME SCH (07:30)
[2018-08-20] MEDS: Insulin LISPRO 300 UNITS/3 ML VIAL SQ SCH ×4 (07:43→22:40)
[2018-08-20] MEDS ORDERED: 0.9 % Sodium Chloride 2,000 ML ONE (08:17)
--- NOTE | 2018-08-20 09:29 | Nephrology Progress Note ---
Addendum entered and electronically signed by Harris Arvizu DO 08/20/18 14:33: I have personally performed a face to face evaluation on this patient. I have reviewed and agree with the care plan. History and Exam by me shows: ESRD patient of the former [facility] (he no longer rounds at [facility]). Due for HD today and will be gentle in terms of ideally avoiding intradialytic hypotension d/t the CVA. Next HD is planned for Monday. Anemia of chronic disease: Aranesp has been started but transfusion parameters as per primary team. Thank you. Original Note: Date of Encounter: 08/20/18 Time of Encounter: 09:27 - Assessment and Plan (1) ESRD (end stage renal disease) on dialysis Current Visit: Yes Status: Chronic HD in progress for today. Will need renal diet when diet advanced. Will need his binder Renvela 800mg one tab p.o. TID with meals once he is no longer NPO Strict I/Os Avoid nephrotoxins if possible (2) History of CVA (cerebrovascular accident) Current Visit: Yes Status: Acute per primary team (3) Acute encephalopathy Current Visit: Yes Status: Resolved per primary team (4) Anemia Current Visit: Yes Status: Chronic Goal Hgb is 10-11. Hgb is 7.1 today. Will defer transfusion to primary team. Qualifiers: Anemia type: due to chronic kidney disease Chronic kidney disease stage: on chronic dialysis Qualified Code(s): N18.6 - End stage renal disease; D63.1 - Anemia in chronic kidney disease; Z99.2 - Dependence on renal dialysis Subjective Principal diagnosis: AMS Interval history: Pt seen and examined in HD, tolerating well. V/S stable. Sitter at bedside. Denies CP, admits to shortness of breath. Denies nausea/vomiting/diarrhea. Objective - Vital Signs Vital signs: Vital Signs Temp Pulse Resp BP Pulse Ox 08/20/18 07:28 98.1 F 71 16 190/89 100 08/20/18 03:51 98.3 F 78 18 168/76 92 08/19/18 23:46 98.6 F 67 18 172/80 98 08/19/18 20:12 98.9 F 79 17 184/89 99 08/19/18 16:05 99.6 F 81 16 173/86 91 08/19/18 12:16 168/83 08/19/18 12:08 177/80 08/19/18 11:04 99.7 F H 79 16 177/86 97 Intake and Output 08/19/18 08/20/18 08/20/18 23:59 07:59 15:59 Intake Total 0 / 0 Balance 0 / 0 Intake: Oral 0 / 0 Other: Meal NPO Weight 99.1 kg Blood Glucose* 87 83 Patient Weight 08/20/18 23:59 Weight 99.1 kg - General Appearance General appearance: Present: well-developed, well-nourished EENT: Present: ATNC, hearing intact Additional Comments: Is legally blind. Neck: Present: supple Respiratory: Present: clear Cardiology: Present: no edema, normal S1, normal S2 Dialysis Vascular Access: Arteriovenous Fistula thrill: Yes bruit: Yes Gastrointestinal: Present: normoactive bowel sounds, no tenderness, no guarding Integumentary: Present: no rash, warm and dry Additional Comments: Alert to self. Psychiatric: Present: mood/affect appropriate, cooperative - Lab 08/20/18 05:01 08/20/18 05:01 Most recent lab results Calcium 8.9 mg/dL (8.6-10.3) 08/20/18 05:01 Phosphorus 5.5 mg/dL (2.7-4.5) H 08/19/18 06:34 Magnesium 1.9 mg/dL (1.6-2.6) 08/19/18 06:34 Consult Discharge Plan - Plan Referrals: Escobar Edmondson MD [Primary Care Provider] -
[2018-08-20] MEDS: Venlafaxine XR (24 HR) 75 MG CAP.ER.24H PO SCH (10:17)
[2018-08-20] MEDS: Divalproex Sodium 125 MG CAPSULE PO SCH (10:17)
[2018-08-20] MEDS: Furosemide 40 MG TABLET PO SCH ×2 (10:18→17:18)
[2018-08-20] MEDS: Isosorbide MONOnitrate (24 HR) 30 MG TAB.ER.24H PO SCH (10:18)
[2018-08-20] MEDS: hydrALAZINE 25 MG TABLET PO SCH ×3 (10:18→22:33)
[2018-08-20] MEDS: amLODIPine 5 MG TABLET PO SCH ×2 (10:18→22:32)
[2018-08-20] MEDS: Aspirin Enteric Coated 81 MG Tablet PO SCH (10:18)
[2018-08-20] MEDS: Renal Vitamin 1 CAP CAPSULE PO SCH (10:18)
[2018-08-20] MEDS: Gabapentin 300 MG CAPSULE PO SCH (10:19)
[2018-08-20] MEDS: cefTRIAXone 1,000 MG in Water for inj. (sterile) 20 ML 10 ML IVP SCH (10:19)
[2018-08-20] MEDS: PrednisoLONE Acetate 1% Opth 5 ML BOTTLE BOTH EYES SCH ×2 (10:34→22:32)
[2018-08-20] MEDS: Cyclopentolate 2 ML BOTTLE BOTH EYES SCH ×2 (10:34→22:33)
--- NOTE | 2018-08-20 11:11 | Internal Med Progress Note ---
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, hypertension,hyperlipidemia, GERD, severe depression Patient is a resident of [facility] Seen and evaluated at the bedside during HD He is admitted this time and being managed for acute ischemic CVA with associated right vertebral artery occlusion According to the history and physical, [facility] [place] neurology had been consulted and recommended medical management The patient has chronic left hemiparesis from his prior CVAs and is legally blind he is much more awake and conversant this a.m ECHO and Carotid Doppler unremarkable Neuro eval is pending UA is dirty, will await culture, start ceftriaxone - Exam Vitals: Temp Pulse Resp BP Pulse Ox 98.1 F 71 15 158/85 100 08/20/18 08:20 08/20/18 07:28 08/20/18 08:20 08/20/18 10:05 08/20/18 07:28 Exam: General: Awake, alert, speaks full sentences, not in distress HEENT: Head atraumatic, normocephalic, and equal. Feels Neck: Normal inspection Chest: equal chest movement bilaterally Respiratory: Clear to auscultation bilaterally anteriorly Cardiovascualr: Regular rate and rhythm with no murmur, absent gallops or rubs, absent pedal edema, radial pulses 2 out of 4 Abdomen: Soft, not tender Skin: warm and dry, absent rash, absent open wounds and nodules MSK: Left hand contracted, left lower extremity with diffuse atrophic Neuro: Awake, alert, left facial droop, pupils and equal (due to prior eye surgery) left hemiparesis - Assessment and Plan (1) Acute cerebral infarction Current Visit: Yes Status: Acute Assessment and Plan: Seen with multiple risk factors including prior multiple CVAs with left hemiparesis, diabetes mellitus and end-stage renal disease and uncontrolled hyperlipidemia who presented with acute encephalopathy Head MRI and MRA shows small acute infarction involving the right temporal lobe periventricular white matter. There was severe chronic microangiopathic ischemic changes of cerebral white matter as well as absent flow related signal within the distal right vertebral artery. 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 According to H&P, [facility] Neurology recommended medical management Neurology evaluation from this facility is pending Echocardiogram, carotid Doppler noted-unremarkable PTOT evaluation pending, speech and swallow evaluation noted-started on a diet Continue fall precautions and aspiration precautions Patient is DNR/DNI Continue aspirin, statin, and blood pressure control (2) Abdominal pain Current Visit: Yes Status: Resolved Assessment and Plan: Abdomen CT shows no acute intra-abdominal abnormality except possible cystitis Urine analysis pending (3) Acute encephalopathy Current Visit: Yes Status: Resolved Assessment and Plan: Resolved Likely secondary to acute CVA (4) Anemia Current Visit: Yes Status: Chronic Assessment and Plan: Anemia is chronic baseline is unknown, hemoglobin 7.4, patient with end-stage renal disease. Anemia is likely due to kidney disease. Follow type and screen, FOBT, transfuse for hemoglobin less than 7 (5) Diabetes Current Visit: Yes Status: Chronic Assessment and Plan: FS ACHS Patent started on a diet Start baal and prandial insulin Continue sliding scale insulin (6) ESRD (end stage renal disease) on dialysis Current Visit: Yes Status: Chronic Assessment and Plan: Nephrology evaluation for hemodialysis (7) Goals of care, counseling/discussion Current Visit: Yes Status: Acute Assessment and Plan: DNR/DNI (8) History of CVA (cerebrovascular accident) Current Visit: Yes Status: Acute Assessment and Plan: Continue current meds (9) Hypertension Current Visit: Yes Status: Acute Assessment and Plan: Allow for Permissive hypertension in setting of acute CVA. Will continue to monitor. Hydralazine when necessary IV (10) Cystitis Current Visit: Yes Status: Acute Assessment and Plan: Per Abd CT and abnormal UA Start Ceftriaxone 1g daily-Day 1 Follow final urine cultures - Time Spent with Patient Total time spent is greater than 50% in coordination of care (as documented) at patient's floor/unit and/or counseling patient: Plan of Care Discussed with: patient Internal Medicine: Result - Labs CBC & Chem 7: 08/20/18 05:01 08/20/18 05:01 Labs: Short CBC 08/20/18 Range/Units 05:01 WBC 5.0 (4.3-11.1) K/mcL Hgb 7.1 L (12.9-16.9) g/dL Hct 22.4 L (37.5-50.1) % Plt Count 148 (140-400) K/mcL Neutrophils # 3.8 (1.6-8.9) K/mcL BMP 08/20/18 05:01 Sodium 142 Potassium 4.4 Chloride 105 Carbon Dioxide 26 BUN 74 H Creatinine 7.67 H Glucose 82 Calcium 8.9 Urine 08/20/18 Range/Units 00:13 Urine Color Yellow (Yellow) Urine Clarity Turbid A (Clear) Urine pH 7.0 (5.0-8.0) pH Units Ur Specific [place] 1.018 (1.010-1.025) Urine Protein >=1000 H (Neg-Trace) mg/dL Urine Glucose (UA) Normal (Normal) mg/dL - ABG Interpretation ABG results: PT/INR, D-dimer PT 12.3 Seconds (9.4-12.1) H 08/18/18 14:19 - Impressions Impressions Brain MRI 08/18/18 22:34 IMPRESSION: Exam quality is severely degraded by motion artifact which limits sensitivity of the examination. Small acute infarction involving the right temporal lobe periventricular white matter. Severe chronic microangiopathic ischemic changes of cerebral white matter. 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 Superimposed acquired occlusion or severe stenosis remains a consideration. When patient's condition permits, consider repeat examination or correlation with CT angiogram head and neck. The findings were sent to the Radiology Results Communication Center at 1:51 am on 08/19/2018to be communicated to a licensed caregiver. D/ / 08/19/2018 10:21:16 Ronnie Gaviria / [facility] Interpreting Provider: Ronnie Gaviria Head MRA 08/18/18 22:34 IMPRESSION: Exam quality is severely degraded by motion artifact which limits sensitivity of the examination. Small acute infarction involving the right temporal lobe periventricular white matter. Severe chronic microangiopathic ischemic changes of cerebral white matter. 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 Superimposed acquired occlusion or severe stenosis remains a consideration. When patient's condition permits, consider repeat examination or correlation with CT angiogram head and neck. The findings were sent to the Radiology Results Communication Center at 1:51 am on 08/19/2018to be communicated to a licensed caregiver. D/ / 08/19/2018 10:21:16 Ronnie Gaviria / [facility] Interpreting Provider: Ronnie Gaviria Abdomen/Pelvis CT 08/19/18 00:00 IMPRESSION: 1. Cardiomegaly and small pericardial effusion. Bilateral pleural effusions and lower lobe atelectatic changes. 2. Circumferential thickening of the urinary bladder suggests cystitis. 3. Compression injuries at L1 and L2 of unknown acuity. D/ / 08/19/2018 08:55:58 Catia Salinas MD / [facility] Interpreting Provider: Catia Salinas MD Consult Discharge Plan - Plan Referrals: Escobar Edmondson MD [Primary Care Provider] - (2) Abdominal pain Qualifiers: Abdominal location: unspecified location Qualified Code(s): R10.9 - Unspecified abdominal pain (4) Anemia Qualifiers: Anemia type: due to chronic kidney disease Chronic kidney disease stage: on chronic dialysis Qualified Code(s): N18.6 - End stage renal disease; D63.1 - Anemia in chronic kidney disease; Z99.2 - Dependence on renal dialysis (5) Diabetes Qualifiers: Diabetes mellitus type: type 2 Diabetes mellitus fci insulin use: with fci use Diabetes mellitus complication detail: with diabetic retinopathy Diabetic retinopathy severity: with severe nonproliferative retinopathy Laterality: bilateral Qualified Code(s): E11.3493 - 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
[2018-08-20] MEDS ORDERED: Gadolinium Contrast Agent (WT Based) IV PRN (11:15)
--- NOTE | 2018-08-20 13:15 | Neurology - Consult Note ---
Date of Encounter: 08/20/18 Time of Encounter: 12:12 Assessment and Plan (1) Acute cerebral infarction Current Visit: Yes Status: Acute Patient had an MRI of the brain which showed an acute infarction in the right temporal lobe with lacunar infarct as well as decreased flow in the right vertebral artery significant motion degraded study but no other critical stenosis reported. Considering patient history of previous a stroke currently he is been on a ntiplatelet agents suggested to continue As far as decreased on the right vertebral artery at this time it was a limited study not sure that it in the hypoplastic congenital or perhaps could be at fabrizio nosis especially with a history of infarct I would suggest that we may check an MRA of his neck to make sure there is no other critical stenosis Because of his renal function would not be able to get a CT angiogram He will be getting other stroke workup including echocardiogram May need to monitor his blood pressure and blood sugar and keep it is a stable range Patient may or may not be able to tolerated the physical therapy currently is beside in the long term perhaps he could do some exercise of the Other treatment is as per primary team will follow the result of MRA and echocardiogram (2) Altered mental status Current Visit: Yes Status: Acute Qualifiers: Altered mental status type: unspecified Qualified Code(s): R41.82 - Altered mental status, unspecified History of Present Illness HPI: Mr. Patterson is a 53 year old male Admieed via ER with vomiting and having decreased responsiveness at dialysis the morning of admission. Patient is a poor historian and is unable to answer questions, only responding "yes" to all questions. Patient recently moved to this area about 2 weeks ago to be closer to his sister. 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 Patient did have an abdominal pain and headaches a day of the admission and after the dialysis he became weaker and less responsive EMS was called and he was transported to the ER for further management. In the ER patient's CBC was 7.3, BUN was 56 and creatinine was 5.64. Head CT showed no acute changes, but did have chronic changes. Concerning of stroke with mental status changes and less responsiveness patient had an MRI of the brain that shows an lacunar infarct in the right temporal lobe with decreased flow of the right vertebral artery Clinically patient is stable he just had his dialysis now he is awake and alert able to follow simple commands though he does on so yes and no to most of the questions but overall he seems to be stable Past Med Surg Social Fam HX - Past Medical History Medical history: CHF, COPD, coronary artery disease, CVA, diabetes, dialysis, GERD, hypertension, myocardial infarction, renal disease Additional medical history: BPH, dysphagia Psychiatric history: depression - Past Surgical History Additional surgical history: left fifth toe amputation - Social History Smoking Status: Unknown if ever smoked Smokeless Tobacco Status: No Alcohol use: unknown Drug use: unknown Medications and Allergies Aspirin [Lo-Dose Aspirin EC] 81 mg PO DAILY 08/18/18 [History] Atorvastatin Calcium [Lipitor] 80 mg PO HS 08/18/18 [History] B Complex W-C No.20/Folic Acid [Virt-Caps Softgel] 1 mg PO DAILY 08/18/18 [History] Baclofen [Lioresal] 5 mg PO BID PRN 08/18/18 [History] Bisacodyl [Dulcolax] 10 mg RC DAILY PRN 08/18/18 [History] Cholecalciferol (Vitamin D3) [Vitamin D] 50,000 unit PO QMONTH 08/18/18 [History] Cyclopentolate HCl [Cyclogyl] 1 drop BOTH EYES BID 08/18/18 [History] Divalproex Sodium [Depakote] 125 mg PO 0800 08/18/18 [History] Erythromycin OPTH Oint 1 appl RIGHT EYE HS 08/18/18 [History] Esomeprazole Magnesium [Nexium] 40 mg PO QAM 08/18/18 [History] Furosemide [Lasix] 80 mg PO BID 08/18/18 [History] Gabapentin [Neurontin] 100 mg PO TUTHSA 08/18/18 [History] Gabapentin [Neurontin] 300 mg PO 0800 08/18/18 [History] Gabapentin [Neurontin] 300 mg PO SUMOWEFR 08/18/18 [History] HYDROcodone/Acet 5/325 mg [Wiota 5-325 mg] 1 tab PO Q4H PRN 08/18/18 [History] Insulin Glargine [Lantus] 27 unit SQ HS 08/18/18 [History] Insulin Regular, Human [Novolin R] 0 unit SQ 0800,1100,1600,2000 08/18/18 [History] Isosorbide MONOnitrate (24 HR) [Imdur] 30 mg PO DAILY 08/18/18 [History] Meclizine HCl [Verticalm] 25 mg PO Q12H PRN 08/18/18 [History] Metoprolol [Lopressor] 25 mg PO BID 08/18/18 [History] Nitroglycerin [Nitrostat] 0.4 mg SL Q5M PRN 08/18/18 [History] Ondansetron HCl [Zofran] 4 mg PO Q6H PRN 08/18/18 [History] Prednisolone Acetate/Pf [Prednisolone Acet 1% Eye Drop] 1 drop BOTH EYES BID 08/18/18 [History] Tamsulosin HCl [Flomax] 0.4 mg PO DAILY 08/18/18 [History] Tramadol HCl [Ultram] 50 mg PO BID PRN 08/18/18 [History] Venlafaxine HCl [Venlafaxine HCl ER] 75 mg PO DAILY 08/18/18 [History] amLODIPine [Norvasc] 5 mg PO BID 08/18/18 [History] hydrALAZINE [HydrALAZINE] 25 mg PO Q8HR 08/18/18 [History] Allergy/AdvReac Type Severity Reaction Status Date / Time vancomycin Allergy Rash Verified 08/18/18 16:15 All Systems: The remainder of the systems were reviewed and are negative Physical Examination - Vital Signs Vital Signs: Initial Vital Signs Temp Pulse Resp BP Pulse Ox 98.4 F 60 16 166/78 93 08/18/18 14:11 08/18/18 14:11 08/18/18 14:11 08/18/18 14:11 08/18/18 14:11 - Exam Exam: GENERAL: Comfortable in no acute distress HEENT: Normal LUNGS: CTA HEART: RRR, S1 S2 Audible, no murmur EXTREMITIES: No Pedal edema. DETAILED NEUROLOGICAL EXAMINATION: MENTAL STATUS: Oriented to person, place, date and situation. Memory: knows the President, Aware of recent events Recent Memory Intact Cranial Nerve Examination: CN - II: Arlene is decreased vision in both eyes and legally blind he is able to see perceive some light on the left but not on the right Pupils- size shape reaction to light and accommodation: CN III, IV, : External ocular movements were intact, Pupils were reactive, Nodrooping of the eyelids CN V: Sensation over the face to light touch and pinprick all normal. Corneal reflexes not tested, jaw jerk normal. CN VII: No facial asymmetry, no flattening of nasolabial folds, no difficulty in closing the eyes, no loss of forehead wrinkles, no difficulty in eye-closure, frowning raising eyebrows. CNVIII: No significant hearing loss CN IX, X: Uvula centralized not deviated, Gag reflex: Not tested CN X1: Sternocleidomastoid, trapezius, normal or evidence of any weakness. CN X11: No Dysarthria, no wasting or fibrilation f tongue muscles, no deviation, tongue muscle strength normal. Motor examination: The patient has a left spastic hemiparesis with some atrophy of the left hand muscles with some contractures, he is able to lift it up 3 minus range also able to lift his left lower extremity 3+, right side is 4/4 upper and lower extremity Coordination: Patient able to do [id number] on the right but not able to do on the left Sensory system: Inconsistent sensory examination particularly decrease in the lower extremities and also in the left upper extremity Deep tendon reflexes. Brisk on the left as compared to the right with upgoing toe on the left No sign of meningeal irritation Gait Examination: Deferred - Constitutional General appearance: comfortable Results - Laboratory Findings CBC and BMP: 08/20/18 05:01 08/20/18 05:01 Abnormal lab findings: Abnormal lab results RBC 2.24 M/mcL (4.19-5.50) L 08/20/18 05:01 Hgb 7.1 g/dL (12.9-16.9) L 08/20/18 05:01 Hct 22.4 % (37.5-50.1) L 08/20/18 05:01 PT 12.3 Seconds (9.4-12.1) H 08/18/18 14:19 BUN 74 mg/dL (6-20) H 08/20/18 05:01 Creatinine 7.67 mg/dL (0.70-1.30) H 08/20/18 05:01 Est GFR ( Amer) 9 (> 60) L 08/20/18 05:01 Est GFR (Non-Af Amer) 7 (> 60) L 08/20/18 05:01 Calculated Osmolality 315 (280-300) H 08/20/18 05:01 Phosphorus 5.5 mg/dL (2.7-4.5) H 08/19/18 06:34 AST 11 Units/L (13-39) L 08/18/18 14:19 Serum Total Protein 6.3 g/dL (6.4-8.9) L 08/18/18 14:19 HDL Cholesterol 25 mg/dL (40-59) L 08/20/18 05:01 Urine Clarity Turbid (Clear) A 08/20/18 00:13 Urine Protein >=1000 mg/dL (Neg-Trace) H 08/20/18 00:13 Urine Ketones Trace mg/dL (Negative) H 08/20/18 00:13 Urine Blood Moderate (Negative) H 08/20/18 00:13 Ur Leukocyte Esterase Large (Negative) H 08/20/18 00:13 Urine Microscopic WBC TNTC per hpf (0-3) H 08/20/18 00:13 Ur Culture Indicated? YES (NO) A 08/20/18 00:13 Valproic Acid 10 mcg/mL (50-100) L 08/18/18 14:19 Consult Discharge Plan - Plan Referrals: Escobar Edmondson MD [Primary Care Provider] -
[2018-08-20] MEDS ORDERED: Gabapentin 100 MG CAPSULE PO SCH (20:00)
[2018-08-20] MEDS: Insulin DETEMIR 100 UNIT/ML X5UNITS SQ SCH (22:39)
[2018-08-21] MEDS: Erythromycin OPTH Oint RIGHT EYE SCH (00:38)
[2018-08-21] MEDS: Baclofen 10 MG TABLET PO PRN ×3 (03:06→21:08)
[2018-08-21 06:19] LABS: Basophils # 0.1 K/mcL (0.0-0.2); Basophils % 0.9 %; Eosinophils # 0.3 K/mcL (0.0-0.6); Hematocrit 23.5 % (37.5-50.1); Hemoglobin 7.5 g/dL (12.9-16.9); Immature Granulocytes % 0.1 % (0-4); Lymphocytes # 0.7 K/mcL (0.6-4.6); Lymphocytes % 9.6 %; Mean Corpuscular HGB Conc 31.9 g/dL (31.6-35.5); Mean Corpuscular Hemoglobin 31.8 pg (28.0-33.3); Mean Corpuscular Volume 99.6 fL (83.0-100.0); Mean Platelet Volume 9.7 fL (9.4-12.4); Monocytes # 0.7 K/mcL (0.0-1.3); Monocytes % 10.6 %; Neutrophils # 5.1 K/mcL (1.6-8.9); Platelet Count 165 K/mcL (140-400); Red Blood Count 2.36 M/mcL (4.19-5.50); Red Cell Distribution Width 12.9 % (11.5-14.5); Segmented Neutrophils % 74.8 %
[2018-08-21 06:54] LABS: Calcium 9.1 mg/dL (8.6-10.3); Potassium 4.4 mEq/L (3.5-5.1)
--- NOTE | 2018-08-21 07:10 | Nephrology Progress Note ---
Date of Encounter: 08/21/18 Time of Encounter: 07:06 - Assessment and Plan (1) ESRD (end stage renal disease) on dialysis Current Visit: Yes Status: Chronic Patient had HD yesterday with 3600ml removed; regular HD is on TTS at [facility] Will need renal diet when diet advanced. Will need his binder Renvela 800mg one tab p.o. TID with meals once he is no longer NPO Strict I/Os Avoid nephrotoxins if possible (2) Anemia Current Visit: Yes Status: Chronic Hgb 7.5, yesterday 7.1 Continue Aranesp Goal Hgb is 10-11. Transfuse per parameters Qualifiers: Anemia type: due to chronic kidney disease Chronic kidney disease stage: on chronic dialysis Qualified Code(s): N18.6 - End stage renal disease; D63.1 - Anemia in chronic kidney disease; Z99.2 - Dependence on renal dialysis (3) History of CVA (cerebrovascular accident) Current Visit: Yes Status: Acute per primary team (4) Acute encephalopathy Current Visit: Yes Status: Resolved Much improved today per primary team Subjective Principal diagnosis: AMS Interval history: Patient seen and examined. Answers questions appropriately today, asks questions. States he is feeling ok. Objective - Vital Signs Vital signs: Vital Signs Temp Pulse Resp BP Pulse Ox 08/21/18 03:50 98.1 F 75 17 158/70 97 08/21/18 00:01 98.3 F 72 17 165/77 98 08/20/18 20:07 99.0 F 71 18 156/77 99 08/20/18 16:15 98.9 F 72 16 168/77 100 08/20/18 12:10 98.0 F 17 134/66 08/20/18 11:50 120/64 08/20/18 11:35 120/66 08/20/18 11:20 110/62 08/20/18 11:05 148/80 08/20/18 10:50 166/84 08/20/18 10:35 157/77 08/20/18 10:20 141/77 08/20/18 10:05 158/85 08/20/18 09:50 163/81 08/20/18 09:35 173/94 08/20/18 09:20 181/92 08/20/18 09:05 177/87 08/20/18 08:50 173/94 08/20/18 08:35 172/86 08/20/18 08:20 98.1 F 15 179/90 08/20/18 07:28 98.1 F 71 16 190/89 100 Intake and Output 08/20/18 08/20/18 08/21/18 15:59 23:59 07:59 Intake Total 600 / 600 240 / 240 Output Total 3600 / 3600 Balance -3000 / -3000 240 / 240 Intake: Oral 0 / 0 240 / 240 Intake, Rinseback and Flushes 600 / 600 Output: Urine 0 / 0 Total Dialysis (HD) Output 3600 / 3600 Other: Meal Dinner Percent of Meal Consumed 100% Stool Size Small Stool Consistency loose # Urine Diapers 1 # Bowel Movements 1 Blood Glucose* 87 134 89 Hemodialysis Net Fluid Removed 3000 (mL) - General Appearance General appearance: Present: well-developed, well-nourished, obese EENT: Present: ATNC, mucous membranes moist, hearing intact, vision intact Neck: Present: supple Respiratory: Present: clear Cardiology: Present: no edema, normal S1, normal S2 Dialysis Vascular Access: Arteriovenous Fistula Gastrointestinal: Present: no tenderness, no guarding Integumentary: Present: warm and dry Neurologic: Present: alert and oriented x3 Psychiatric: Present: mood/affect appropriate, cooperative - Lab 08/21/18 05:19 08/21/18 05:19 Most recent lab results Calcium 9.1 mg/dL (8.6-10.3) 08/21/18 05:19 Phosphorus 5.5 mg/dL (2.7-4.5) H 08/19/18 06:34 Magnesium 1.9 mg/dL (1.6-2.6) 08/19/18 06:34 Consult Discharge Plan - Plan Referrals: Escobar Edmondson MD [Primary Care Provider] -
[2018-08-21] MEDS: Insulin LISPRO 300 UNITS/3 ML VIAL SQ SCH ×4 (08:26→21:10)
[2018-08-21] MEDS: Divalproex Sodium 125 MG CAPSULE PO SCH (09:04)
[2018-08-21] MEDS: cefTRIAXone 1,000 MG in Water for inj. (sterile) 20 ML 10 ML IVP SCH (09:05)
[2018-08-21] MEDS: Aspirin Enteric Coated 81 MG Tablet PO SCH (09:05)
[2018-08-21] MEDS: Gabapentin 300 MG CAPSULE PO SCH (09:05)
[2018-08-21] MEDS: Venlafaxine XR (24 HR) 75 MG CAP.ER.24H PO SCH (09:06)
[2018-08-21] MEDS: Isosorbide MONOnitrate (24 HR) 30 MG TAB.ER.24H PO SCH (09:06)
[2018-08-21] MEDS: Renal Vitamin 1 CAP CAPSULE PO SCH (09:06)
[2018-08-21] MEDS: Furosemide 40 MG TABLET PO SCH ×2 (09:06→16:48)
[2018-08-21] MEDS: hydrALAZINE 25 MG TABLET PO SCH ×3 (09:06→21:08)
[2018-08-21] MEDS: PrednisoLONE Acetate 1% Opth 5 ML BOTTLE BOTH EYES SCH ×2 (09:06→21:09)
[2018-08-21] MEDS: amLODIPine 5 MG TABLET PO SCH ×2 (09:06→21:08)
[2018-08-21] MEDS: Cyclopentolate 2 ML BOTTLE BOTH EYES SCH ×2 (09:07→21:09)
--- NOTE | 2018-08-21 11:24 | Neurology Progress Note ---
<Jack Davis - Last Filed: 08/21/18 15:59> Date of Encounter: 08/21/18 Time of Encounter: 10:22 Assessment and Plan (1) Acute cerebral infarction Current Visit: Yes Status: Acute Patients MRI showed small acute infarct in the right temporal lobe periventricular white matter. MRA neck negative for stenosis carotid duplex: left proximan ICA has moderate, 40-59% stenosis echocardiogram LVEF 60% saline contrast images suboptimal for PFO recommend starting patient on plavix along with aspirin. continue statin (2) Acute encephalopathy Current Visit: Yes Status: Resolved alert oriented x3 resolved may be 2nd to acute CVA Subjective Principal diagnosis: AMS Interval history: No acute overnight events. Patient is alert and oriented x3. Patient denies headache, chest pain, sob,N/V. LE pain. Objective - Constitutional Vitals: Temp Pulse Resp BP Pulse Ox 97.9 F 69 16 187/79 100 08/21/18 07:10 08/21/18 07:10 08/21/18 07:10 08/21/18 07:10 08/21/18 07:10 Exam: General: pleasant, without distress HEENT: Head atraumatic, normocephalic, absent ear discharge or trauma, Moist Mucous Membranes, uvula midline Neck: nontender to palpation, absent lymphadenopathy, Cardiovascualr: Regular rate and rhythm with no murmur, absent gallops or rubs, absent pedal edema, radial pulses 2 out of 4 Lungs: Clear to auscultation bilaterally, not in respiratory distress Abdomen: Soft nontender, nondistended positive bowel sounds, absent hepatomegaly Skin: warm and dry, absent rash, absent open wounds and nodules MSK: absent clubbing, cyanosis, joints without swelling Psych: not anxioius or depressed - Neurological Exam Sensorimotor examination: Present: hemiparesis (left spastic ) Motor examination - right side: 4/5: deltoids, biceps, triceps, wrist flexion, wrist extension, chief of planning, hip flexors, tibialis Anterior, quadriceps, toe extension (EHL), plantarflexion Motor examination - left side: 3/5: deltoids, biceps, triceps, wrist flexion, wrist extension, hip flexors, chief of planning, quadriceps, tibialis Anterior, toe extension (EHL), plantarflexion Sensation intact: Present: intact, temperature, vibration Reflex and gait examination: other (gait not examined) Mental Status Examination: Present: awake, oriented to person, oriented to place, oriented to time, follows commands appropriately, opens eyes to voice Cranial nerve examination: Present: PERRL, sensory to face intact, no dysarthria, hearing is intact symmetrically, soft palate elevates bilaterally upon phonation, flexes SCM and trapezius muscles symmetrically with full power, tongue protrudes midline, no atrophy or facial fasiculations present. Absent: visual sheriff intact (legally blind in both eyes), tongue atrophied, tongue fasiculations Results - Laboratory Findings CBC and BMP: 08/21/18 05:19 08/21/18 05:19 Abnormal lab findings: Abnormal lab results RBC 2.36 M/mcL (4.19-5.50) L 08/21/18 05:19 Hgb 7.5 g/dL (12.9-16.9) L 08/21/18 05:19 Hct 23.5 % (37.5-50.1) L 08/21/18 05:19 PT 12.3 Seconds (9.4-12.1) H 08/18/18 14:19 Carbon Dioxide 30 mEq/L (23-29) H 08/21/18 05:19 BUN 44 mg/dL (6-20) H 08/21/18 05:19 Creatinine 5.14 mg/dL (0.70-1.30) H 08/21/18 05:19 Est GFR ( Amer) 14 (> 60) L 08/21/18 05:19 Est GFR (Non-Af Amer) 12 (> 60) L 08/21/18 05:19 Phosphorus 5.5 mg/dL (2.7-4.5) H 08/19/18 06:34 AST 11 Units/L (13-39) L 08/18/18 14:19 Serum Total Protein 6.3 g/dL (6.4-8.9) L 08/18/18 14:19 HDL Cholesterol 25 mg/dL (40-59) L 08/20/18 05:01 Urine Clarity Turbid (Clear) A 08/20/18 00:13 Urine Protein >=1000 mg/dL (Neg-Trace) H 08/20/18 00:13 Urine Ketones Trace mg/dL (Negative) H 08/20/18 00:13 Urine Blood Moderate (Negative) H 08/20/18 00:13 Ur Leukocyte Esterase Large (Negative) H 08/20/18 00:13 Urine Microscopic WBC TNTC per hpf (0-3) H 08/20/18 00:13 Ur Culture Indicated? YES (NO) A 08/20/18 00:13 Valproic Acid 10 mcg/mL (50-100) L 08/18/18 14:19 Consult Discharge Plan - Plan Referrals: Escobar Edmondson MD [Primary Care Provider] - <Teri Groves I - Last Filed: 08/21/18 16:42> Assessment and Plan (1) Acute cerebral infarction Current Visit: Yes Status: Acute Pt was seen and examined, my medical decision was reviewed with the Resident Physician, I agree with the documented findings, disposition and treatment plas as described except to the extent set forth below. So far his workup is been negative suggest to continue him on aspirin and Plavix stable from neurology standpoint Okay to discharge/transfer to his nursing placement continue on home physical therapy Teri Groves MD (2) Altered mental status Current Visit: Yes Status: Acute Qualifiers: Altered mental status type: unspecified Qualified Code(s): R41.82 - Altered mental status, unspecified Objective - Constitutional Vitals: Temp Pulse Resp BP Pulse Ox 97.9 F 65 16 170/81 91 08/21/18 15:56 08/21/18 15:56 08/21/18 15:56 08/21/18 15:56 08/21/18 15:56 Results - Laboratory Findings CBC and BMP: 08/21/18 05:19 08/21/18 05:19 Abnormal lab findings: Abnormal lab results RBC 2.36 M/mcL (4.19-5.50) L 08/21/18 05:19 Hgb 7.5 g/dL (12.9-16.9) L 08/21/18 05:19 Hct 23.5 % (37.5-50.1) L 08/21/18 05:19 PT 12.3 Seconds (9.4-12.1) H 08/18/18 14:19 Carbon Dioxide 30 mEq/L (23-29) H 08/21/18 05:19 BUN 44 mg/dL (6-20) H 08/21/18 05:19 Creatinine 5.14 mg/dL (0.70-1.30) H 08/21/18 05:19 Est GFR ( Amer) 14 (> 60) L 08/21/18 05:19 Est GFR (Non-Af Amer) 12 (> 60) L 08/21/18 05:19 Phosphorus 5.5 mg/dL (2.7-4.5) H 08/19/18 06:34 AST 11 Units/L (13-39) L 08/18/18 14:19 Serum Total Protein 6.3 g/dL (6.4-8.9) L 08/18/18 14:19 HDL Cholesterol 25 mg/dL (40-59) L 08/20/18 05:01 Urine Clarity Turbid (Clear) A 08/20/18 00:13 Urine Protein >=1000 mg/dL (Neg-Trace) H 08/20/18 00:13 Urine Ketones Trace mg/dL (Negative) H 08/20/18 00:13 Urine Blood Moderate (Negative) H 08/20/18 00:13 Ur Leukocyte Esterase Large (Negative) H 08/20/18 00:13 Urine Microscopic WBC TNTC per hpf (0-3) H 08/20/18 00:13 Ur Culture Indicated? YES (NO) A 08/20/18 00:13 Valproic Acid 10 mcg/mL (50-100) L 08/18/18 14:19
--- NOTE | 2018-08-21 11:37 | Internal Med Progress Note ---
Hospitalist Progress Note - Encounter Date of Encounter: 08/21/18 Time of Encounter: 09:00 - Subjective Interval History: Pt is more awake, alert today, oriented x 3 at bedside evaluation. Denies dysuria. Left side weakness no change. - Exam Vitals: Temp Pulse Resp BP Pulse Ox 98.4 F 69 16 169/83 99 08/21/18 10:45 08/21/18 10:45 08/21/18 10:45 08/21/18 10:45 08/21/18 10:45 Exam: General: Awake, alert, speaks full sentences, not in distress HEENT: Head atraumatic, normocephalic. Neck: Normal inspection Chest: equal chest movement bilaterally Respiratory: Clear to auscultation bilaterally anteriorly Cardiovascualr: Regular rate and rhythm with no murmur, absent gallops or rubs, absent pedal edema, radial pulses 2 out of 4 Abdomen: Soft, not tender Skin: warm and dry, absent rash, absent open wounds and nodules MSK: Left hand contracted, left lower extremity with diffuse atrophic Neuro: Awake, alert, left facial droop, pupils and equal (due to prior eye surgery) left hemiparesis - Assessment and Plan (1) Acute cerebral infarction Current Visit: Yes Status: Acute Assessment and Plan: Seen with multiple risk factors including prior multiple CVAs with left hemiparesis, diabetes mellitus and end-stage renal disease and uncontrolled hyperlipidemia who presented with acute encephalopathy Head MRI and MRA shows small acute infarction involving the right temporal lobe periventricular white matter. There was severe chronic microangiopathic ischemic changes of cerebral white matter as well as absent flow related signal within the distal right vertebral artery. 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 Echocardiogram, carotid Doppler noted-unremarkable PTOT evaluation pending, speech and swallow evaluation noted-started on a diet Continue fall precautions and aspiration precautions Patient is DNR/DNI Continue aspirin, statin, and blood pressure control (2) Acute encephalopathy Current Visit: Yes Status: Resolved Assessment and Plan: Resolved Likely secondary to acute CVA (3) Cystitis Current Visit: Yes Status: Acute Assessment and Plan: Per Abd CT and abnormal UA Start Ceftriaxone 1g daily-Day 2 Urine cultures shows GNR, final result pending (4) Hypertension Current Visit: Yes Status: Acute (5) Diabetes Current Visit: Yes Status: Chronic Assessment and Plan: FS ACHS Patent started on a diet Start basal and prandial insulin Continue sliding scale insulin (6) ESRD (end stage renal disease) on dialysis Current Visit: Yes Status: Chronic Assessment and Plan: Nephrology on case, cont hemodialysis DVT Prophylaxis: Heparin SC - Time Spent with Patient Total time spent is greater than 50% in coordination of care (as documented) at patient's floor/unit and/or counseling patient: 30 min 25 - 35 minutes Plan of Care Discussed with: family Internal Medicine: Result - Labs CBC & Chem 7: 08/21/18 05:19 08/21/18 05:19 Labs: Short CBC 08/21/18 Range/Units 05:19 WBC 6.8 (4.3-11.1) K/mcL Hgb 7.5 L (12.9-16.9) g/dL Hct 23.5 L (37.5-50.1) % Plt Count 165 (140-400) K/mcL Neutrophils # 5.1 (1.6-8.9) K/mcL BMP 08/21/18 05:19 Sodium 139 Potassium 4.4 Chloride 101 Carbon Dioxide 30 H BUN 44 H Creatinine 5.14 H Glucose 86 Calcium 9.1 - ABG Interpretation ABG results: PT/INR, D-dimer PT 12.3 Seconds (9.4-12.1) H 08/18/18 14:19 - Impressions Impressions Neck MRA 08/20/18 11:15 IMPRESSION: 1. No high-grade stenosis or focal occlusion involving the cervical vasculature. 2. Trace bilateral pleural effusions. 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
[2018-08-21] MEDS: *HR* Heparin 5,000 UNIT/ML VIAL SQ SCH (16:59)
--- NOTE | 2018-08-21 17:14 | Electrocardiograph Report ---
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
[2018-08-21] MEDS ORDERED: Gabapentin 100 MG CAPSULE PO SCH ×2 (20:00)
[2018-08-21] MEDS: Insulin DETEMIR 100 UNIT/ML X5UNITS SQ SCH (21:09)
[2018-08-22] MEDS: Erythromycin OPTH Oint RIGHT EYE SCH (04:09)
[2018-08-22 04:31] LABS: Basophils % 0.7 %; Eosinophils # 0.4 K/mcL (0.0-0.6); Eosinophils % 6.5 %; Hematocrit 23.9 % (37.5-50.1); Hemoglobin 7.7 g/dL (12.9-16.9); Immature Granulocytes % 0.2 % (0-4); Lymphocytes # 0.7 K/mcL (0.6-4.6); Lymphocytes % 11.6 %; Mean Corpuscular HGB Conc 32.2 g/dL (31.6-35.5); Mean Corpuscular Hemoglobin 32.2 pg (28.0-33.3); Mean Platelet Volume 9.7 fL (9.4-12.4); Monocytes # 0.6 K/mcL (0.0-1.3); Monocytes % 10.6 %; Neutrophils # 4.2 K/mcL (1.6-8.9); Platelet Count 159 K/mcL (140-400); Red Blood Count 2.39 M/mcL (4.19-5.50); Red Cell Distribution Width 12.7 % (11.5-14.5); Segmented Neutrophils % 70.4 %
[2018-08-22 04:50] LABS: Calcium 8.6 mg/dL (8.6-10.3); Potassium 4.5 mEq/L (3.5-5.1)
[2018-08-22] MEDS: *HR* Heparin 5,000 UNIT/ML VIAL SQ SCH (05:27)
[2018-08-22] MEDS: Baclofen 10 MG TABLET PO PRN (05:28)
[2018-08-22] MEDS ORDERED: 0.9 % Sodium Chloride 250 ML IVC PRN (07:42)
[2018-08-22] MEDS ORDERED: hydrALAZINE 25 MG TABLET PO SCH (09:00)
--- NOTE | 2018-08-22 09:40 | Nephrology Progress Note ---
Addendum entered and electronically signed by Harris Arvizu DO 08/27/18 11:12: I have personally performed a face to face evaluation on this patient. I have reviewed and agree with the care plan. History and Exam by me shows: HD today. I reviewed his labs, vitals, med list, progress notes and prior imaging in with high degree of MDM and E/M and placed HD orders on this high risk patient. Original Note: Date of Encounter: 08/22/18 Time of Encounter: 09:40 - Assessment and Plan (1) ESRD (end stage renal disease) on dialysis Current Visit: Yes Status: Chronic HD in progress today, regular HD is on TTS at [facility] Will need renal diet when diet advanced. Will need his binder Renvela 800mg one tab p.o. TID with meals once he is no longer NPO Strict I/Os Avoid nephrotoxins if possible (2) Anemia Current Visit: Yes Status: Chronic Hgb 7.7 today. Continue Aranesp Goal Hgb is 10-11. Transfuse per parameters Qualifiers: Anemia type: due to chronic kidney disease Chronic kidney disease stage: on chronic dialysis Qualified Code(s): N18.6 - End stage renal disease; D63.1 - Anemia in chronic kidney disease; Z99.2 - Dependence on renal dialysis (3) History of CVA (cerebrovascular accident) Current Visit: Yes Status: Acute per primary team (4) Acute encephalopathy Current Visit: Yes Status: Resolved Much improved today per primary team Subjective Principal diagnosis: AMS Interval history: Pt seen and examined in HD, tolerating well. V/S stable. No complaints. \ Objective - Vital Signs Vital signs: Vital Signs Temp Pulse Resp BP Pulse Ox 08/22/18 07:27 97.7 F 77 17 184/85 100 08/22/18 04:42 98.4 F 73 17 174/80 99 08/21/18 23:53 97.7 F 73 17 173/80 99 08/21/18 20:41 97.5 F L 69 17 169/73 99 08/21/18 18:14 11 99 08/21/18 15:56 97.9 F 65 16 170/81 91 08/21/18 10:45 98.4 F 69 16 169/83 99 Intake and Output 08/21/18 08/22/18 08/22/18 23:59 07:59 15:59 Other: Weight 91.5 kg Blood Glucose* 145 114 Patient Weight 08/22/18 23:59 Weight 91.5 kg - General Appearance General appearance: Present: well-developed, well-nourished EENT: Present: ATNC, hearing intact Neck: Present: supple Respiratory: Present: clear Cardiology: Present: no edema, normal S1, normal S2 Dialysis Vascular Access: Arteriovenous Fistula thrill: Yes bruit: Yes Gastrointestinal: Present: normoactive bowel sounds, no tenderness, no guarding Integumentary: Present: no rash, warm and dry Neurologic: Present: alert and oriented x3 Psychiatric: Present: mood/affect appropriate, cooperative - Lab 08/22/18 04:11 08/22/18 04:11 Most recent lab results Calcium 8.6 mg/dL (8.6-10.3) 08/22/18 04:11 Phosphorus 5.5 mg/dL (2.7-4.5) H 08/19/18 06:34 Magnesium 1.9 mg/dL (1.6-2.6) 08/19/18 06:34 Consult Discharge Plan - Plan Referrals: Escobar Edmondson MD [Primary Care Provider] -
--- NOTE | 2018-08-22 10:28 | Discharge Summary ---
- NOTES TO OUTPATIENT PROVIDER Notes to Outpatient Provider: 1. Pt has UTI, urine culture shows Klebsiella Pneumoniae, sensitive to cipro, please cont po cipro for 5 more days. 2. Per neurology, add plavix 75 mg po daily. 3. Pt's home med hydralazine has been in creased to 50 mg po tid as his BP is high, please f/u BP. Orders not resulted at time of discharge: Pending orders 08/19/18 07:57 Occult Blood,Stool [BF] Routine 08/20/18 00:13 Urinalysis Reflex Cult & Micro [URIN] Routine Date of Encounter: 08/22/18 Time of Encounter: 09:00 - Discharge Diagnosis (1) Acute cerebral infarction Priority: Primary Status: Acute (2) Acute encephalopathy Priority: Primary Status: Resolved (3) Cystitis Priority: Primary Status: Acute (4) History of CVA (cerebrovascular accident) Priority: Secondary Status: Acute (5) Hypertension Priority: Secondary Status: Acute Qualifiers: Hypertension type: unspecified Qualified Code(s): I10 - Essential (primary) hypertension (6) Diabetes Priority: Secondary Status: Chronic Qualifiers: Diabetes mellitus type: type 2 Diabetes mellitus intermediate frame tender insulin use: with intermediate frame tender use Diabetes mellitus complication detail: with diabetic retinopathy Diabetic retinopathy severity: with severe nonproliferative retinopathy Laterality: bilateral Qualified Code(s): E11.3493 - 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 Patterson is a 53 year old male admitted for AMS. Pt has hx of two CVA previously with left side hemiplegia. MRI in ER shows new acute infarct. Neurology consult called and see pt, MRA neck shows no significant stenosis. Pt was started plavix along with his baby aspirin per neurology. Pt also has UTI with urine culture positive for Klebsiella Pneumoniae, sensitive to cipro, will give pt 5 days po cipro. Pt will D/C to NH today after HD. I saw and examined pt in HD room. Pt is AAO x3, denies dysuria. Vitals are stable. Stable to D/C to NH and cont PT/OT in NH. Discharge discussed with: patient - Time Spent with Patient Total time spent providing and/or coordinating discharge services: 30 min Less than 30 minutes - Discharge Medications Prescriptions: Ciprofloxacin [Cipro] 250 mg PO BID 5 Days #10 tablet Clopidogrel [Plavix] 75 mg PO DAILY 30 Days #30 tablet hydrALAZINE [HydrALAZINE] 50 mg PO TID 30 Days #60 tablet Sevelamer [Renvela] 800 mg PO TIDWM 30 Days #90 tablet Home Medications: Aspirin [Lo-Dose Aspirin EC] 81 mg PO DAILY 08/18/18 [History] Atorvastatin Calcium [Lipitor] 80 mg PO HS 08/18/18 [History] B Complex W-C No.20/Folic Acid [Virt-Caps Softgel] 1 mg PO DAILY 08/18/18 [History] Baclofen [Lioresal] 5 mg PO BID PRN 08/18/18 [History] Bisacodyl [Dulcolax] 10 mg RC DAILY PRN 08/18/18 [History] Cholecalciferol (Vitamin D3) [Vitamin D3] 50,000 unit PO QMONTH 08/18/18 [History] Cyclopentolate HCl [Cyclogyl] 1 drop BOTH EYES BID 08/18/18 [History] Divalproex Sodium [Depakote] 125 mg PO 0800 08/18/18 [History] Erythromycin OPTH Oint 1 appl RIGHT EYE HS 08/18/18 [History] Esomeprazole Magnesium [Nexium] 40 mg PO QAM 08/18/18 [History] Furosemide [Lasix] 80 mg PO BID 08/18/18 [History] Gabapentin [Neurontin] 100 mg PO TUTHSA 08/18/18 [History] Gabapentin [Neurontin] 300 mg PO 0800 08/18/18 [History] Gabapentin [Neurontin] 300 mg PO SUMOWEFR 08/18/18 [History] HYDROcodone/Acet 5/325 mg [[place] 5-325 mg] 1 tab PO Q4H PRN 08/18/18 [History] Insulin Glargine [Lantus] 27 unit SQ HS 08/18/18 [History] Insulin Regular, Human [Novolin R] 0 unit SQ 0800,1100,1600,2000 08/18/18 [History] Isosorbide MONOnitrate (24 HR) [Imdur] 30 mg PO DAILY 08/18/18 [History] Meclizine HCl [Verticalm] 25 mg PO Q12H PRN 08/18/18 [History] Metoprolol [Lopressor] 25 mg PO BID 08/18/18 [History] Nitroglycerin [Nitrostat] 0.4 mg SL Q5M PRN 08/18/18 [History] Ondansetron HCl [Zofran] 4 mg PO Q6H PRN 08/18/18 [History] Prednisolone Acetate/Pf [Prednisolone Acet 1% Eye Drop] 1 drop BOTH EYES BID 08/18/18 [History] Tamsulosin HCl [Flomax] 0.4 mg PO DAILY 08/18/18 [History] Tramadol HCl [Ultram] 50 mg PO BID PRN 08/18/18 [History] Venlafaxine HCl [Venlafaxine HCl ER] 75 mg PO DAILY 08/18/18 [History] amLODIPine [Norvasc] 5 mg PO BID 08/18/18 [History] hydrALAZINE [HydrALAZINE] 25 mg PO Q8HR 08/18/18 [History] Ciprofloxacin [Cipro] 250 mg PO BID 5 Days #10 tablet 08/22/18 [Rx] Clopidogrel [Plavix] 75 mg PO DAILY 30 Days #30 tablet 08/22/18 [Rx] Sevelamer [Renvela] 800 mg PO TIDWM 30 Days #90 tablet 08/22/18 [Rx] hydrALAZINE [HydrALAZINE] 50 mg PO TID 30 Days #60 tablet 08/22/18 [Rx] Allergies/Adverse Reactions: Allergy/AdvReac Type Severity Reaction Status Date / Time vancomycin Allergy Rash Verified 08/18/18 16:15 Date of admission: 08/19/18 10:35 Primary care physician: Escobar Edmondson MD Consults: 08/18/18 20:24 Consult to [employer] Developer [CONS] Routine Reason for SW Consult: ECF placement 08/18/18 22:12 Consult to Nephrology [CONS] Routine Consulting Provider: [facility]/AMAURY/NIGEL/HORTENCIA Reason for Consult: On diaysis, ended dialysis abruptly due to vomiting, altered mental status. Call Completed: No 08/19/18 07:52 Consult to Neurology [CONS] Routine Consulting Provider: [facility] Reason for Consult: Small infarct of right temporal lobe, history of CVA. Acute encephalopathy. Call Completed: No 08/19/18 08:00 Consult to Speech Therapy [CONS] Routine Comment: Evaluate, develop and implement POC Reason for Consult: Recenet CVA, acute encephalopathy. Call Completed: No 08/20/18 07:30 Consult to Dialysis [CONS] ONCE 08/22/18 07:45 Consult to Dialysis [CONS] ONCE Discharging clinician: Henrietta Marcial Anticipated date of discharge: 08/22/18 - Constitutional Vitals: Temp Pulse Resp BP Pulse Ox 97.1 F L 77 18 167/83 100 08/22/18 09:00 08/22/18 07:27 08/22/18 09:00 08/22/18 10:15 08/22/18 07:27 General appearance: Present: cooperative, A&O X 3, no acute distress, answers questions appropriately Exam: General: Awake, alert, speaks full sentences, not in distress HEENT: Head atraumatic, normocephalic. Neck: Normal inspection Chest: equal chest movement bilaterally Respiratory: Clear to auscultation bilaterally anteriorly Cardiovascualr: Regular rate and rhythm with no murmur, absent gallops or rubs, absent pedal edema, radial pulses 2 out of 4 Abdomen: Soft, not tender Skin: warm and dry, absent rash, absent open wounds and nodules MSK: Left hand contracted, left lower extremity with diffuse atrophic Neuro: Awake, alert, left facial droop, pupils and equal (due to prior eye surgery) left hemiparesis - Patient Status Disposition: Transfer SNF Condition: Fair Functional capacity at discharge: bed bound Overall status at discharge: patient is back to baseline - Discharge Instructions Follow Up With: Escobar Edmondson MD [Primary Care Provider] - - Diet and Activity Activity: as per physical therapy Diet: diabetic diet, other (renal diet)
[2018-08-22] MEDS: Aspirin Enteric Coated 81 MG Tablet PO SCH (10:43)
[2018-08-22] MEDS: Divalproex Sodium 125 MG CAPSULE PO SCH (10:43)
[2018-08-22] MEDS: Isosorbide MONOnitrate (24 HR) 30 MG TAB.ER.24H PO SCH (10:43)
[2018-08-22] MEDS: Gabapentin 300 MG CAPSULE PO SCH (10:43)
[2018-08-22] MEDS: Furosemide 40 MG TABLET PO SCH (10:43)
[2018-08-22] MEDS: Venlafaxine XR (24 HR) 75 MG CAP.ER.24H PO SCH (10:43)
[2018-08-22] MEDS: Renal Vitamin 1 CAP CAPSULE PO SCH (10:43)
[2018-08-22] MEDS: Insulin LISPRO 300 UNITS/3 ML VIAL SQ SCH ×2 (10:43→13:01)
[2018-08-22] MEDS: Cyclopentolate 2 ML BOTTLE BOTH EYES SCH (10:51)
[2018-08-22] MEDS: amLODIPine 5 MG TABLET PO SCH (10:52)
[2018-08-22] MEDS: cefTRIAXone 1,000 MG in Water for inj. (sterile) 20 ML 10 ML IVP SCH (10:56)
--- NOTE | 2018-08-22 10:58 | Physician Discharge Referral ---
ExtendedCare Referral Info Transfer To: [facility] Provider in Charge after Transfer: Other (F physician) - Diagnosis (1) Acute cerebral infarction Status: Acute (2) Acute encephalopathy Status: Resolved (3) Cystitis Status: Acute (4) History of CVA (cerebrovascular accident) Status: Acute (5) Hypertension Status: Acute (6) Diabetes Status: Chronic (7) ESRD (end stage renal disease) on dialysis Status: Chronic - Transfer Medications Prescriptions: Ciprofloxacin [Cipro] 250 mg PO BID 5 Days #10 tablet Clopidogrel [Plavix] 75 mg PO DAILY 30 Days #30 tablet hydrALAZINE [HydrALAZINE] 50 mg PO TID 30 Days #60 tablet HYDROcodone/Acet 5/325 mg [[place] 5-325 mg] 1 tab PO Q4H PRN 2 Days #5 tablet PRN Reason: Mild To Moderate Pain Sevelamer [Renvela] 800 mg PO TIDWM 30 Days #90 tablet Tramadol HCl [Ultram] 50 mg PO BID PRN 3 Days #6 tablet PRN Reason: Mild To Moderate Pain Home Medications: Aspirin [Lo-Dose Aspirin EC] 81 mg PO DAILY 08/18/18 [History] Atorvastatin Calcium [Lipitor] 80 mg PO HS 08/18/18 [History] B Complex W-C No.20/Folic Acid [Virt-Caps Softgel] 1 mg PO DAILY 08/18/18 [History] Baclofen [Lioresal] 5 mg PO BID PRN 08/18/18 [History] Bisacodyl [Dulcolax] 10 mg RC DAILY PRN 08/18/18 [History] Cholecalciferol (Vitamin D3) [Vitamin D3] 50,000 unit PO QMONTH 08/18/18 [History] Cyclopentolate HCl [Cyclogyl] 1 drop BOTH EYES BID 08/18/18 [History] Divalproex Sodium [Depakote] 125 mg PO 0800 08/18/18 [History] Erythromycin OPTH Oint 1 appl RIGHT EYE HS 08/18/18 [History] Esomeprazole Magnesium [Nexium] 40 mg PO QAM 08/18/18 [History] Furosemide [Lasix] 80 mg PO BID 08/18/18 [History] Gabapentin [Neurontin] 100 mg PO TUTHSA 08/18/18 [History] Gabapentin [Neurontin] 300 mg PO 0800 08/18/18 [History] Gabapentin [Neurontin] 300 mg PO SUMOWEFR 08/18/18 [History] Insulin Glargine [Lantus] 27 unit SQ HS 08/18/18 [History] Insulin Regular, Human [Novolin R] 0 unit SQ 0800,1100,1600,2000 08/18/18 [History] Isosorbide MONOnitrate (24 HR) [Imdur] 30 mg PO DAILY 08/18/18 [History] Meclizine HCl [Verticalm] 25 mg PO Q12H PRN 08/18/18 [History] Metoprolol [Lopressor] 25 mg PO BID 08/18/18 [History] Nitroglycerin [Nitrostat] 0.4 mg SL Q5M PRN 08/18/18 [History] Ondansetron HCl [Zofran] 4 mg PO Q6H PRN 08/18/18 [History] Prednisolone Acetate/Pf [Prednisolone Acet 1% Eye Drop] 1 drop BOTH EYES BID 08/18/18 [History] Tamsulosin HCl [Flomax] 0.4 mg PO DAILY 08/18/18 [History] Venlafaxine HCl [Venlafaxine HCl ER] 75 mg PO DAILY 08/18/18 [History] amLODIPine [Norvasc] 5 mg PO BID 08/18/18 [History] hydrALAZINE [HydrALAZINE] 25 mg PO Q8HR 08/18/18 [History] Ciprofloxacin [Cipro] 250 mg PO BID 5 Days #10 tablet 08/22/18 [Rx] Clopidogrel [Plavix] 75 mg PO DAILY 30 Days #30 tablet 08/22/18 [Rx] HYDROcodone/Acet 5/325 mg [[place] 5-325 mg] 1 tab PO Q4H PRN 2 Days #5 tablet 08/22/18 [Rx] Sevelamer [Renvela] 800 mg PO TIDWM 30 Days #90 tablet 08/22/18 [Rx] Tramadol HCl [Ultram] 50 mg PO BID PRN 3 Days #6 tablet 08/22/18 [Rx] hydrALAZINE [HydrALAZINE] 50 mg PO TID 30 Days #60 tablet 08/22/18 [Rx] Allergies/Adverse Reactions: Allergy/AdvReac Type Severity Reaction Status Date / Time vancomycin Allergy Rash Verified 08/18/18 16:15 - Respiratory Orders Smoking Cessation: Smoking cessation has been advised. For more information, call the [place] Tobacco Quit Line at 7-439-IVDQ-NOW. - Advance Directives Code Status: DNR-Arrest/Don't Intubate - Rehabiliation Orders Rehab Orders: Evaluation for Physical Therapy, Evaluation for Occupational Therapy - Diet Orders No Concentrated Sweets, Renal CERTIFICATION: I certify that the transfer of the above named patient to an Extended Care Facility is necessary for the continuing treatment of the diagnosis listed. The above information is true and accurate reflection of patient's current condition. Confidential - Redisclosure prohibited without a patient's written consent.
[2018-08-22] MEDS: PrednisoLONE Acetate 1% Opth 5 ML BOTTLE BOTH EYES SCH (13:02)
[2018-08-22 15:02] VITALS: BP 169/88
== END 2018-08-22 15:13 | DRG 64 ==
LOC: EMEROOARM 13:52 → 2ANU 13:52 → SUATTDRO 18:29 → 2ANU 18:58
PROVIDERS: ADMIT Internal Medicine; ATTEND Internal Medicine